=== PATIENT | female | born 1960 | race Caucasian/White ===

== ENCOUNTER 2017-03-11 11:31 | Emergency (ER) | payer SELFPAY ==
[~2017-03-11] VITALS: Ht 172.7 cm; Wt 48.5 kg
[~2017-03-11 11:31] MED LIST: ALEVE220 M1 PO; AMOXICILLIN500 MG PO; BUSPIRONE HCL10 MG PO; CELEXA40 MG PO; FLUTICASONE PRO16 GM NS; HYDROCODON-ACE1 EA14 PO; IBUPROFEN600 MG PO; IBUPROFEN800 MG PO; LEVOTHYROXINE125 MCG PO; LYRICA75 MG PO; MELOXICAM15 MG PO; NAPROXEN500 MG PO; NORCO 5-325 TA1 EACH PO; PSEUDOEPHEDRINE60 MG PO; REGLAN10 MG PO; ROBAXIN-750750 MG PO; TRAMADOL HCL50 MG PO; VALIUM5 MG PO
[2017-03-11] MEDS ORDERED: FOLIC ACID0.4 MG PO (11:54)
[2017-03-11] MEDS ORDERED: VITAMIN B122500 MC1 PO (11:54)
== END 2017-03-11 15:12 | disposition home or self-care (01) ==
LOC: ED 11:31
DX: R63.4 Abnormal weight loss (principal); R19.7 Diarrhea, unspecified; E03.9 Hypothyroidism, unspecified; J44.9 Chronic obstructive pulmonary disease, unspecified; Z87.891 Personal history of nicotine dependence; Z90.710 Acquired absence of both cervix and uterus; Z90.49 Acquired absence of other specified parts of digestive tract; Z95.0 Presence of cardiac pacemaker; Z88.1 Allergy status to other antibiotic agents; Z88.5 Allergy status to narcotic agent; Z79.899 Other long term (current) drug therapy
CPT/HCPCS: 71020; 80053; 81001; 84439; 84443; 85025; 96360; 99283; J7030

== ENCOUNTER 2017-05-15 16:09 | Emergency (ER) | payer SELFPAY ==
[~2017-05-15] VITALS: Ht 172.7 cm; Wt 48.5 kg
[~2017-05-15 16:09] MED LIST changes: +FOLIC ACID0.4 MG PO; +VITAMIN B122500 MC1 PO
== END 2017-05-15 17:46 | disposition home or self-care (01) ==
LOC: ED 16:09
PROC: 0HQFXZZ Repair Right Hand Skin, External Approach (ICD-10-PCS; principal; 2017-05-15)
DX: S61.411A Laceration without foreign body of right hand, initial encounter (principal); E03.9 Hypothyroidism, unspecified; J44.9 Chronic obstructive pulmonary disease, unspecified; F17.200 Nicotine dependence, unspecified, uncomplicated; Z90.49 Acquired absence of other specified parts of digestive tract; Z90.710 Acquired absence of both cervix and uterus; Z95.0 Presence of cardiac pacemaker; Z98.890 Other specified postprocedural states; Z88.8 Allergy status to other drugs, medicaments and biological substances; Z88.1 Allergy status to other antibiotic agents; Z88.5 Allergy status to narcotic agent; W22.8XXA Striking against or struck by other objects, initial encounter
CPT/HCPCS: 12001; 99282

== ENCOUNTER 2017-10-05 17:24 | Emergency (ER) | payer SELFPAY ==
[~2017-10-05] VITALS: Ht 172.7 cm; Wt 46.7 kg
--- OUTSIDE RECORDS SUMMARY | ~2017-10-05 | XMS | Encounter Summary ---
Demographics + + + | Address | [address] | | | [place] [address] | + + + | Home Phone | | + + + | Preferred Language | Unknown | + + + | Marital Status | | + + + | Voodoo Affiliation | 1009 | + + + | Race | Unknown | + + + | Ethnic Group | Unknown | + + + Author + + + | Author | [facility] | + + + | Organization | [facility] | + + + | Address | Unknown | + + + | Phone | Unavailable | + + + Support + + + + + | Name | Relationship | Address | Phone | + + + + + | Brent Marin | ECON | [place] | | | | | [address] | | + + + + + Care Team Providers + +------+ + | Care Customer Support Associate Name | Role | Phone | + +------+ + | Mariangel Mcnulty NP | PCP | | + +------+ + Reason for Visit + + + | Reason | Comments | + + + | Pacemaker Check | in office | + + + Encounter Details +--------+ + + + + | Date | Type | Department | Care Team | Description | +--------+ + + + + | 08/21/ | Documentati | [facility] | | Pacemaker Check (in | | 2018 | on Only | [facility] [place] | | office) | | | | [address] | | | | | | [address] | | | | | | [place] [address] | | | | | | [phone] | | | +--------+ + + + [...] + as of this encounter Progress Notes Louis Benjamin - 08/21/2017 11:30 AM PDTIN OFFICE DEVICE INTERROGATION: Longevity/voltage: 8y 6mo Anticoagulation: Aspirin: 81mg Lead Impedance: WNL Thresholds: WNL Ap:64% Rvp: 0% Events: AT/AF 0%. 846 MANUFACTURER ( over 182 days) most recent 08/21/17 (several same day) longest 1 min 14sec SVT/Atrial Tach MVR 136 bpm. longest 08/06/17 6min 30sec MVR 130bpm 1:1 retrograde SVT EGMs printed. patient notices more dizziness when she first wakes up, but seems to go aw ay thought out the day- meds taken in the AM. Retrograde test V>A @ 176ms PVARP already @ 30 0ms. PMT protection ON @ 350ms. Plan: Remotes, Yearly in office Last in office with e business consultant: 07/04/17 senior pharmacy technician: Juliana Corona this encounter Plan of Treatment +--------+ + + + + | Date | Type | Specialty | Care Team | Description | +--------+ + + + + | 11/29/ | Documentati | Cardiology | | | | 2018 | on Only | | | | +--------+ + + + + | 12/26/ | Office | Cardiology | Suzanne Lazaro, | | | 2018 | Visit | | MD Simón Stover | | | | | | Dr [address], | | | | | | [place] [address] | | | | | | [phone] | | | | | | | | +--------+ + + + + | 02/28/ | Documentati | Cardiology | | | | 2017 | on Only | | | | +--------+ + + + + | 05/30/ | Documentati | Cardiology | | | | 2017 | on Only | | | | +--------+ + + + + as of this encounter Visit Diagnoses + + | Diagnosis | + + | Sick sinus syndrome (HCC) - Primary | + + | Sinoatrial node dysfunction | + +
--- OUTSIDE RECORDS SUMMARY | ~2017-10-05 | XMS | Encounter Summary ---
Demographics + + + | Address | [address] | | | [place] [address] | + + + | Home Phone | | + + + | Preferred Language | Unknown | + + + | Marital Status | | + + + | Druze Affiliation | 1009 | + + + | Race | Unknown | + + + | Ethnic Group | Unknown | + + + Author + + + | Author | [facility] | + + + | Organization | [facility] | + + + | Address | Unknown | + + + | Phone | Unavailable | + + + Support + + + + + | Name | Relationship | Address | Phone | + + + + + | Brent Marin | ECON | [place] | | | | | [address] | | + + + + + Care Team Providers + +------+ + | Care Camp Dishwasher Name | Role | Phone | + [...] + | 08/21/ | Documentati | [facility] [place] | | Pacemaker Check (in | | 2018 | on Only | [facility]iology [place] | | office) | | | | [address] | | | | | | [address] | | | | | | [place] [address] | | | | | | [phone] | | | +--------+ + + + [...] Ap:64% Rvp: 0% Events: AT/AF 0%. 846 CARD PUNCHER ( over 182 days) most recent 08/21/17 [...] Yearly in office Last in office with software release manager: 07/04/17 linux server engineer: Juliana Corona this encounter Plan of Treatment [...] | | | | | | [place] [address] | | | | | | [phone] | | | | | | | [...]
--- OUTSIDE RECORDS SUMMARY | ~2017-10-05 | XMS | Clinical Summary ---
Demographics + + + | Address | [address] | | | [place] [address] | + + + | Home Phone | | + + + | Preferred Language | Unknown | + + + | Marital Status | | + + + | Latter Day Affiliation | 1009 | + + + | Race | Unknown | + + + | Ethnic Group | Unknown | + + + Author + + + | Author | [facility] | + + + | Organization | [facility] | + + + | Address | Unknown | + + + | Phone | Unavailable | + + + Support + + + + + | Name | Relationship | Address | Phone | + + + + + | Brent Marin | ECON | [place] | | | | | [address] | | + + + + + Care Team Providers + +------+ + | Care Track Announcer Name | Role | Phone | + +------+ + | Mariangel Mcnulty SALES MANAGEMENT INTERN | PP | | + +------+ + [...] | | | | Activ | | 73040 UNITS TABS | 14 (fourteen) days. | [...] Pacemaker. | | Model-S/N: Damien THORNTON (SN [id number] | + + + + + | [...] months. Hx ICD/Pacemaker: implanted 02/15/2015, | | [employer]ovis DR-T/PRO MRI, SN: [id number].Last interrogation, | | 05/24/2016: battery status OK, [...] with | | adhesions/lysis, small bowel resection. [place] 10-year risk | | 1%, low risk.Lab, [...] | +--------+ + + + + | 09/21/ | Telephone | | Luis Hopson | Advice Only | | 2017 | | | | (Biotronic Alert) | +--------+ + + + + | 08/21/ | Documentati | | | Pacemaker Check (in | 2017 | on Only | | | office) | +--------+ + + + + | 07/30/ | Telephone | | Louis Benjamin | | | 2017 | | | | | +--------+ + + + + | 07/12/ | Documentati | | Constanza Portillo | Other ([facility] | | 2017 | on Only | | [place] | Records) | +--------+ + + + + from [...] + + + | Blood Pressure | 92/56 | 07/04/2017 4:21 PM PST | + + + + | Pulse | 59 | 07/04/2017 4:21 PM PST | + + + + | Temperature | 36.6 C (97.8 F) | 02/17/2015 9:51 AM PDT | + + + + | Respiratory Rate | 15 | 05/24/2016 2:13 PM PST | + + + + | Oxygen Saturation | 97% | 07/04/2017 4:21 PM PST | + + + + | Inhaled Oxygen | - | - | | Concentration | | | + + + + | Weight | 47.7 kg (105 lb 3.2 | 07/04/2017 4:21 PM PST | | | oz) | | + + + + | Height | 172.7 cm (5' 8") | 07/04/2017 4:21 PM PST | + + + + | Body Mass Index | 16 | 07/04/2017 4:21 PM PST | + + + + Plan of Treatment +--------+ + + + + | Date | Type | Specialty | Care Team | Description | +--------+ + + + + | 11/29/ | Documentati | | | | | 2017 | on Only | | | | +--------+ + + + + | 12/26/ | Office | | Suzanne Lazaro, | | | 2017 | Visit | | MD Simón Stover | | | | | | Dr [address], | | | | | | [place] [address] | | | | | | [phone] | | | | | | | | +--------+ + + + + | 02/28/ | Documentati | | | | | 2017 | on Only | | | | +--------+ + + + + | 05/30/ | Documentati | | | | | 2017 | on Only | | | | +--------+ + + + + + + + + + | Health Maintenance | Due Date | Last Done | Comments | + + + + + | Vaccine: | | | | | Dtap/Tdap/Td (1 - | 8 | | | | Tdap) | | | | + + + + + | Cervical Cancer | | | | | Screening (Pap) | 0 | | | + + + + [...] | | | | (Season Ended) | 8 | | | + + + + [...] | N/A: | | | 10/08/ | [id number] | | 53Implanted: Qty: 1 on | | Chest | | | 2016 | | | 02/04/2015 by Sebas | | | | | | /[id number] | | MD Queta | | | | | | 880 / | + +------+-------+ +--------+--------+--------+ | Atrial Lead Setrox S | | N/A: | | | 10/08/ | | | 53Implanted: Qty: 1 on | | Chest | | | 2016 | /[id number] | | 02/04/2015 by Sebas, | | | | | | 6630 / | | MD Queta | | | | | | | + +------+-------+ +--------+--------+--------+ | Pacemaker Entovis Dr-T | | N/A: | | | 04/10/ | [id number] | | PromriImplanted: Qty: 1 on | | Chest | | | 2014 | | | 02/04/2015 by Sebas, | | | | | | /[id number] | | MD Queta | | | | | | 752 / | + +------+-------+ +--------+--------+--------+ Results Not on filefrom Last 3 Months
--- OUTSIDE RECORDS SUMMARY | ~2017-10-05 | XMS | Encounter Summary ---
Demographics + + + | Address | [address] | | | [place] [address] | + + + | Home Phone | | + + + | Preferred Language | Unknown | + + + | Marital Status | | + + + | Zoroastrian Affiliation | 1009 | + + + | Race | Unknown | + + + | Ethnic Group | Unknown | + + + Author + + + | Author | [facility] | + + + | Organization | [facility] | + + + | Address | Unknown | + + + | Phone | Unavailable | + + + Support + + + + + | Name | Relationship | Address | Phone | + + + + + | Brent Marin | ECON | [place] | | | | | [address] | | + + + + + Care Team Providers + +------+ + | Care Senior Shipping Clerk Name | Role | Phone | + [...] | on Only | Cardiology Catherine Cordoba, RETAIL MARKETING EXECUTIVE | Records) | | | | [address] | | | | | | [place] | | | | | | [address] | | | | | | [phone] | | | +--------+ + + + [...] | | | | | | [place] [address] | | | | | | [phone] | | | | | | | [...]
--- OUTSIDE RECORDS SUMMARY | ~2017-10-05 | XMS | Encounter Summary ---
Demographics + + + | Address | [address] | | | [place] [address] | + + + | Home Phone | | + + + | Preferred Language | Unknown | + + + | Marital Status | | + + + | Pentecostalism Affiliation | 1009 | + + + | Race | Unknown | + + + | Ethnic Group | Unknown | + + + Author + + + | Author | [facility] | + + + | Organization | [facility] | + + + | Address | Unknown | + + + | Phone | Unavailable | + + + Support + + + + + | Name | Relationship | Address | Phone | + + + + + | Brent Marin | ECON | [place] | | | | | [address] | | + + + + + Care Team Providers + +------+ + | Care Settlement Processor Name | Role | Phone | + +------+ + | Mariangel Mcnulty NP | PCP | | + +------+ + Encounter Details +--------+ + + + + | Date | Type | Department | Care Team | Description | +--------+ + + + + | 07/30/ | Telephone | [facility] | Louis Benjamin | | | 2017 | | Cardiology [facility] | | | | | | [address] | | | | | | [place] | | | | | | [address] | | | | | | [phone] | | | +--------+ + + + [...] | | | | | | [place] [address] | | | | | | [phone] | | | | | | | [...]
--- OUTSIDE RECORDS SUMMARY | ~2017-10-05 | XMS | Encounter Summary ---
Demographics + + + | Address | [address] | | | [place] [address] | + + + | Home Phone | | + + + | Preferred Language | Unknown | + + + | Marital Status | | + + + | Denominational Affiliation | 1009 | + + + | Race | Unknown | + + + | Ethnic Group | Unknown | + + + Author + + + | Author | [facility] | + + + | Organization | [facility] | + + + | Address | Unknown | + + + | Phone | Unavailable | + + + Support + + + + + | Name | Relationship | Address | Phone | + + + + + | Brent Marin | ECON | [place] | | | | | [address] | | + + + + + Care Team Providers + +------+ + | Care Lumber Salvager Name | Role | Phone | + [...] | on Only | Cardiology Catherine Cordoba, ACCOUNT RETENTION REPRESENTATIVE | Records) | | | | [address] | | | | | | [place] | | | | | | [address] | | | | | | [phone] | | | +--------+ + + + [...] | | | | | | [place] [address] | | | | | | [phone] | | | | | | | [...]
--- OUTSIDE RECORDS SUMMARY | ~2017-10-05 | XMS | Encounter Summary ---
Demographics + + + | Address | [address] | | | [place] [address] | + + + | Home Phone | | + + + | Preferred Language | Unknown | + + + | Marital Status | | + + + | Oriental Orthodox Affiliation | 1009 | + + + | Race | Unknown | + + + | Ethnic Group | Unknown | + + + Author + + + | Author | [facility] | + + + | Organization | [facility] | + + + | Address | Unknown | + + + | Phone | Unavailable | + + + Support + + + + + | Name | Relationship | Address | Phone | + + + + + | Brent Marin | ECON | [place] | | | | | [address] | | + + + + + Care Team Providers + +------+ + | Care Senior Business Broker Name | Role | Phone | + [...] Only | | 2018 | | Cardiology [place] | | (Biotronic Alert) | | | | [address] | | | | | | [place], [place] | | | | | | [address] | | | | | | [phone] | | | +--------+ + + + [...] | | | | | | [place] [address] | | | | | | [phone] | | | | | | | [...]
--- OUTSIDE RECORDS SUMMARY | ~2017-10-05 | XMS | Clinical Summary ---
Demographics + + + | Address | [address] | | | [place] [address] | + + + | Home Phone | | + + + | Preferred Language | Unknown | + + + | Marital Status | | + + + | Gnosticism Affiliation | 1009 | + + + | Race | Unknown | + + + | Ethnic Group | Unknown | + + + Author + + + | Author | [facility] | + + + | Organization | [facility] | + + + | Address | Unknown | + + + | Phone | Unavailable | + + + Support + + + + + | Name | Relationship | Address | Phone | + + + + + | Brent Marin | ECON | [place] | | | | | [address] | | + + + + + Care Team Providers + +------+ + | Care Overhead Line Worker Name | Role | Phone | + +------+ + | Mariangel Mcnulty TELEPHONE SALES AGENT | PP | | + +------+ + [...] | | | | Activ | | 77788 UNITS TABS | 14 (fourteen) days. | [...] Pacemaker. | | Model-S/N: Damien THORNTON (SN [id number] | + + + + + | [...] months. Hx ICD/Pacemaker: implanted 02/15/2015, | | [employer] DR-T/PRO MRI, SN: [id number].Last interrogation, | | 05/24/2016: battery status OK, [...] with | | adhesions/lysis, small bowel resection. [place] 10-year risk | | 1%, low risk.Lab, [...] | | | | | | [place] [address] | | | | | | [phone] | | | | | | | [...] | N/A: | | | 10/08/ | [id number] | | 53Implanted: Qty: 1 on | | Chest | | | 2016 | | | 02/04/2015 by Sebas | | | | | | /[id number] | | MD Queta | | | | | | 880 / | + +------+-------+ +--------+--------+--------+ | Atrial Lead Setrox S | | N/A: | | | 10/08/ | | | 53Implanted: Qty: 1 on | | Chest | | | 2016 | /[id number] | | 02/04/2015 by Sebas, | | | | | | 6630 / | | MD Queta | | | | | | | + +------+-------+ +--------+--------+--------+ | Pacemaker Entovis Dr-T | | N/A: | | | 04/10/ | [id number] | | PromriImplanted: Qty: 1 on | | Chest | | | 2014 | | | 02/04/2015 by Sebas, | | | | | | /[id number] | | MD Queta | | | | | | 752 / | + +------+-------+ +--------+--------+--------+ Results Not on filefrom Last 3 Months
--- OUTSIDE RECORDS SUMMARY | ~2017-10-05 | XMS | Encounter Summary ---
Demographics + + + | Address | [address] | | | [place] [address] | + + + | Home Phone [...] + + + | Author | [facility] | + + + | Organization | [facility] | + + + | Address | Unknown | + + + | Phone | Unavailable | + + + Support + + + + + | Name | Relationship | Address | Phone | + + + + + | Brent Marin | ECON | [place] | | | | | [address] | | + + + + + Care Team Providers + +------+ + | Care Health Record Technician Name | Role | Phone | [...] [place] | | | | | | [address] | | | | | | [phone] | | | +--------+ + + + [...] | | | | | | [place] [address] | | | | | | [phone] | | | | | | | [...]
--- OUTSIDE RECORDS SUMMARY | ~2017-10-05 | XMS | Encounter Summary ---
Demographics + + + | Address | [address] | | | [place] [address] | + + + | Home Phone | | + + + | Preferred Language | Unknown | + + + | Marital Status | | + + + | Religion Affiliation | 1009 | + + + | Race | Unknown | + + + | Ethnic Group | Unknown | + + + Author + + + | Author | [facility] | + + + | Organization | [facility] | + + + | Address | Unknown | + + + | Phone | Unavailable | + + + Support + + + + + | Name | Relationship | Address | Phone | + + + + + | Brent Marin | ECON | [place] | | | | | [address] | | + + + + + Care Team Providers + +------+ + | Care Card Grader Name | Role | Phone | + [...] Only | | 2018 | | Cardiology [place] | | (Biotronic Alert) | | | | [address] | | | | | | [place], [place] | | | | | | [address] | | | | | | [phone] | | | +--------+ + + + [...] | | | | | | [place] [address] | | | | | | [phone] | | | | | | | [...]
== END 2017-10-05 17:47 | disposition left against medical advice (07) ==
LOC: ED 17:24
DX: Z53.21 Procedure and treatment not carried out due to patient leaving prior to being seen by health care provider (principal)

== ENCOUNTER 2017-10-06 08:27 | Emergency (ER) | payer SELFPAY ==
[~2017-10-06] VITALS: Ht 172.7 cm; Wt 46.7 kg
--- OUTSIDE RECORDS SUMMARY | ~2017-10-06 | XMS | Encounter Summary ---
Demographics + + + | Address | [address] | | | [place] [address] | + + + | Home Phone | | + + + | Preferred Language | Unknown | + + + | Marital Status | | + + + | Yazidi Affiliation | 1009 | + + + | Race | Unknown | + + + | Ethnic Group | Unknown | + + + Author + + + | Author | [facility] | + + + | Organization | [facility] | + + + | Address | Unknown | + + + | Phone | Unavailable | + + + Support + + + + + | Name | Relationship | Address | Phone | + + + + + | Brent Marin | ECON | [place] | | | | | [address] | | + + + + + Care Team Providers + +------+ + | Care Cardiac Cath Rn Name | Role | Phone | + +------+ + | Mariangel Mcnulty NP | PCP | | + +------+ + Reason for Visit + + + | Reason | Comments | + + + | Advice Only | Biotronic Alert | + + + Encounter Details +--------+ + + + + | Date | Type | Department | Care Team | Description | +--------+ + + + + | 09/21/ | Telephone | [facility] | Luis Hopson | Advice Only | | 2018 | | Cardiology [place] | | (Biotronic Alert) | | | | [address] | | | | | | [place], [place] | | | | | | [address] | | | | | | [phone] | | | +--------+ + + + [...] as of this encounter Plan of Treatment +--------+ + [...] | | | | | | [place] [address] | | | | | | [phone] | | | | | | | [...]
--- OUTSIDE RECORDS SUMMARY | ~2017-10-06 | XMS | Encounter Summary ---
Demographics + + + | Address | [address] | | | [place] [address] | + + + | Home Phone | | + + + | Preferred Language | Unknown | + + + | Marital Status | | + + + | Mormonism Affiliation | 1009 | + + + | Race | Unknown | + + + | Ethnic Group | Unknown | + + + Author + + + | Author | [facility] | + + + | Organization | [facility] | + + + | Address | Unknown | + + + | Phone | Unavailable | + + + Support + + + + + | Name | Relationship | Address | Phone | + + + + + | Brent Marin | ECON | [place] | | | | | [address] | | + + + + + Care Team Providers + +------+ + | Care Leather Scrubber Name | Role | Phone | + +------+ + | Mariangel Mcnulty NP | PCP | | + +------+ + Reason for Visit +--------+ + | Reason | Comments | +--------+ + | Other | [facility] | +--------+ + Encounter Details +--------+ + + + + | Date | Type | Department | Care Team | Description | +--------+ + + + + | 07/12/ | Documentati | [facility] | Constanza Portillo | Other ([facility] | | 2018 | on Only | Cardiology Catherine Cordoba, MARITIME GUARD | Records) | | | | [address] | | | | | | [place] | | | | | | [address] | | | | | | [phone] | | | +--------+ + + + [...] Cardiology | Suzanne Lazaro, | | | 2017 | Visit | | MD Simón Stover | | | | | | Dr [address], | | | | | | [place] [address] | | | | | | [phone] | | | | | | | [...]
--- OUTSIDE RECORDS SUMMARY | ~2017-10-06 | XMS | Clinical Summary ---
Demographics + + + | Address | [address] | | | [place] [address] | + + + | Home Phone | | + + + | Preferred Language | Unknown | + + + | Marital Status | | + + + | Holiness Affiliation | 1009 | + + + | Race | Unknown | + + + | Ethnic Group | Unknown | + + + Author + + + | Author | [facility] | + + + | Organization | [facility] | + + + | Address | Unknown | + + + | Phone | Unavailable | + + + Support + + + + + | Name | Relationship | Address | Phone | + + + + + | Brent Marin | ECON | [place] | | | | | [address] | | + + + + + Care Team Providers + +------+ + | Care Lawyer Real Estate Name | Role | Phone | + +------+ + | Mariangel Mcnulty LACE FINISHER | PP | | + +------+ + [...] | | | | Activ | | 95968 UNITS TABS | 14 (fourteen) days. | [...] Pacemaker. | | Model-S/N: Damien THORNTON (SN [id number] | + + + + + | [...] months. Hx ICD/Pacemaker: implanted 02/15/2015, | | [employer] DR-T/PRO MRI, SN: [id number].Last interrogation, | | 05/24/2016: battery status OK, [...] with | | adhesions/lysis, small bowel resection. [place] 10-year risk | | 1%, low risk.Lab, [...] | | | | | | [place] [address] | | | | | | [phone] | | | | | | | [...] | N/A: | | | 10/08/ | [id number] | | 53Implanted: Qty: 1 on | | Chest | | | 2016 | | | 02/04/2015 by Sebas | | | | | | /[id number] | | MD Queta | | | | | | 880 / | + +------+-------+ +--------+--------+--------+ | Atrial Lead Setrox S | | N/A: | | | 10/08/ | | | 53Implanted: Qty: 1 on | | Chest | | | 2016 | /[id number] | | 02/04/2015 by Sebas, | | | | | | 6630 / | | MD Queta | | | | | | | + +------+-------+ +--------+--------+--------+ | Pacemaker Entovis Dr-T | | N/A: | | | 04/10/ | [id number] | | PromriImplanted: Qty: 1 on | | Chest | | | 2014 | | | 02/04/2015 by Sebas, | | | | | | /[id number] | | MD Queta | | | | | | 752 / | + +------+-------+ +--------+--------+--------+ Results Not on filefrom Last 3 Months
--- OUTSIDE RECORDS SUMMARY | ~2017-10-06 | XMS | Encounter Summary ---
Demographics + + + | Address | [address] | | | [place] [address] | + + + | Home Phone | | + + + | Preferred Language | Unknown | + + + | Marital Status | | + + + | Mu-Ism Affiliation | 1009 | + + + | Race | Unknown | + + + | Ethnic Group | Unknown | + + + Author + + + | Author | [facility] | + + + | Organization | [facility] | + + + | Address | Unknown | + + + | Phone | Unavailable | + + + Support + + + + + | Name | Relationship | Address | Phone | + + + + + | Brent Marin | ECON | [place] | | | | | [address] | | + + + + + Care Team Providers + +------+ + | Care Gas Leak Inspector Helper Name | Role | Phone | + [...] Only | | 2018 | | [facility] [place] | | (Biotronic Alert) | | | | [address] | | | | | | [place], [place] | | | | | | [address] | | | | | | [phone] | | | +--------+ + + + [...] | | | | | | [place] [address] | | | | | | [phone] | | | | | | | [...]
--- OUTSIDE RECORDS SUMMARY | ~2017-10-06 | XMS | Encounter Summary ---
Demographics + + + | Address | [address] | | | [place] [address] | + + + | Home Phone | | + + + | Preferred Language | Unknown | + + + | Marital Status | | + + + | Mu-Ism Affiliation | 1009 | + + + | Race | Unknown | + + + | Ethnic Group | Unknown | + + + Author + + + | Author | [facility] | + + + | Organization | [facility] | + + + | Address | Unknown | + + + | Phone | Unavailable | + + + Support + + + + + | Name | Relationship | Address | Phone | + + + + + | Brent Marin | ECON | [place] | | | | | [address] | | + + + + + Care Team Providers + +------+ + | Care Juvenile Court Liaison Name | Role | Phone | + [...] [place] | | | | | | [address] | | | | | | [phone] | | | +--------+ + + + [...] | | | | | | [place] [address] | | | | | | [phone] | | | | | | | [...]
--- OUTSIDE RECORDS SUMMARY | ~2017-10-06 | XMS | Encounter Summary ---
Demographics + + + | Address | [address] | | | [place] [address] | + + + | Home Phone | | + + + | Preferred Language | Unknown | + + + | Marital Status | | + + + | Voodoo Affiliation | 1009 | + + + | Race | Unknown | + + + | Ethnic Group | Unknown | + + + Author + + + | Author | [facility] | + + + | Organization | [facility] | + + + | Address | Unknown | + + + | Phone | Unavailable | + + + Support + + + + + | Name | Relationship | Address | Phone | + + + + + | Brent Marin | ECON | [place] | | | | | [address] | | + + + + + Care Team Providers + +------+ + | Care Bilingual Office Assistant Name | Role | Phone | + [...] [place] | | | | | | [address] | | | | | | [phone] | | | +--------+ + + + [...] | | | | | | [place] [address] | | | | | | [phone] | | | | | | | [...]
--- OUTSIDE RECORDS SUMMARY | ~2017-10-06 | XMS | Encounter Summary ---
Demographics + + + | Address | [address] | | | [place] [address] | + + + | Home Phone | | + + + | Preferred Language | Unknown | + + + | Marital Status | | + + + | Worship Affiliation | 1009 | + + + | Race | Unknown | + + + | Ethnic Group | Unknown | + + + Author + + + | Author | [facility] [employer] [facility] | + + + | Organization | [facility] [employer] | + + + | Address | Unknown | + + + | Phone | Unavailable | + + + Support + + + + + | Name | Relationship | Address | Phone | + + + + + | Brent Marin | ECON | [place] | | | | | [address] | | + + + + + Care Team Providers + +------+ + | Care Elementary School Music Teacher Name | Role | Phone | + [...] + | 08/21/ | Documentati | [facility] [place] | | Pacemaker Check (in | | 2018 | on Only | [facility] [place] | | office) | | | | [address] | | | | | | [address] | | | | | | [place] [address] | | | | | | [phone] | | | +--------+ + + + [...] Ap:64% Rvp: 0% Events: AT/AF 0%. 846 CALL PERSON ( over 182 days) most recent 08/21/17 [...] Yearly in office Last in office with district service manager: 07/04/17 merit system director: Juliana Corona this encounter Plan of Treatment [...] | | | | | | [place] [address] | | | | | | [phone] | | | | | | | [...]
--- OUTSIDE RECORDS SUMMARY | ~2017-10-06 | XMS | Encounter Summary ---
Demographics + + + | Address | [address] | | | [place] [address] | + + + | Home Phone | | + + + | Preferred Language | Unknown | + + + | Marital Status | | + + + | Mandaen Affiliation | 1009 | + + + | Race | Unknown | + + + | Ethnic Group | Unknown | + + + Author + + + | Author | [facility] [employer] [facility] | + + + | Organization | [facility] [employer] [facility] | + + + | Address | Unknown | + + + | Phone | Unavailable | + + + Support + + + + + | Name | Relationship | Address | Phone | + + + + + | Brent Marin | ECON | [place] | | | | | [address] | | + + + + + Care Team Providers + +------+ + | Care Correctional Treatment Specialist Name | Role | Phone | [...] + | 08/21/ | Documentati | [facility] [place] | | Pacemaker Check (in | | 2018 | on Only | [facility] [place] | | office) | | | | [address] | | | | | | [address] | | | | | | [place] [address] | | | | | | [phone] | | | +--------+ + + + [...] Ap:64% Rvp: 0% Events: AT/AF 0%. 846 HAIRSPRING SETTER ( over 182 days) most recent 08/21/17 [...] Yearly in office Last in office with reconciling clerk: 07/04/17 hydrator: Juliana Corona this encounter Plan of Treatment [...] | | | | | | [place] [address] | | | | | | [phone] | | | | | | | [...]
--- OUTSIDE RECORDS SUMMARY | ~2017-10-06 | XMS | Clinical Summary ---
Demographics + + + | Address | [address] | | | [place] [address] | + + + | Home Phone | | + + + | Preferred Language | Unknown | + + + | Marital Status | | + + + | Synagogue Affiliation | 1009 | + + + | Race | Unknown | + + + | Ethnic Group | Unknown | + + + Author + + + | Author | [facility] | + + + | Organization | [facility] | + + + | Address | Unknown | + + + | Phone | Unavailable | + + + Support + + + + + | Name | Relationship | Address | Phone | + + + + + | Brent Marin | ECON | [place] | | | | | [address] | | + + + + + Care Team Providers + +------+ + | Care Terminal Clerk Name | Role | Phone | + +------+ + | Mariangel Mcnulty PERSONAL BANKING REPRESENTATIVE | PP | | + +------+ + [...] | | | | Activ | | 84227 UNITS TABS | 14 (fourteen) days. | [...] Pacemaker. | | Model-S/N: Damien THORNTON (SN [id number] | + + + + + | [...] months. Hx ICD/Pacemaker: implanted 02/15/2015, | | [employer] DR-T/PRO MRI, SN: [id number].Last interrogation, | | 05/24/2016: battery status OK, [...] with | | adhesions/lysis, small bowel resection. [place] 10-year risk | | 1%, low risk.Lab, [...] | | | | | | [place] [address] | | | | | | [phone] | | | | | | | [...] | N/A: | | | 10/08/ | [id number] | | 53Implanted: Qty: 1 on | | Chest | | | 2016 | | | 02/04/2015 by Sebas | | | | | | /[id number] | | MD Queta | | | | | | 880 / | + +------+-------+ +--------+--------+--------+ | Atrial Lead Setrox S | | N/A: | | | 10/08/ | | | 53Implanted: Qty: 1 on | | Chest | | | 2016 | /[id number] | | 02/04/2015 by Sebas, | | | | | | [id number] / | | MD Queta | | | | | | | + +------+-------+ +--------+--------+--------+ | Pacemaker Entovis Dr-T | | N/A: | | | 04/10/ | [id number] | | PromriImplanted: Qty: 1 on | | Chest | | | 2014 | | | 02/04/2015 by Sebas, | | | | | | /[id number] | | MD Queta | | | | | | 752 / | + +------+-------+ +--------+--------+--------+ Results Not on filefrom Last 3 Months
--- OUTSIDE RECORDS SUMMARY | ~2017-10-06 | XMS | Encounter Summary ---
Demographics + + + | Address | [address] | | | [place] [address] | + + + | Home Phone | | + + + | Preferred Language | Unknown | + + + | Marital Status | | + + + | Shinto Affiliation | 1009 | + + + | Race | Unknown | + + + | Ethnic Group | Unknown | + + + Author + + + | Author | [facility] [employer] [facility] | + + + | Organization | [facility] [employer] | + + + | Address | Unknown | + + + | Phone | Unavailable | + + + Support + + + + + | Name | Relationship | Address | Phone | + + + + + | Brent Marin | ECON | [place] | | | | | [address] | | + + + + + Care Team Providers + +------+ + | Care Entrance Guard Name | Role | Phone | + [...] | on Only | Cardiology Catherine Cord[place], AGRICULTURAL PILOT | Records) | | | | [address] | | | | | | [place] | | | | | | [address] | | | | | | [phone] | | | +--------+ + + + [...] | | | | | | [place] [address] | | | | | | [phone] | | | | | | | [...]
== END 2017-10-06 08:41 | disposition home or self-care (01) ==
LOC: ED 08:27
DX: S61.211A Laceration without foreign body of left index finger without damage to nail, initial encounter (principal); W45.8XXA Other foreign body or object entering through skin, initial encounter

== ENCOUNTER 2017-10-23 13:46 | Emergency (ER) | payer OTHER ==
[~2017-10-23] VITALS: Ht 172.7 cm; Wt 45.8 kg
[2017-10-23] MEDS ORDERED: ASPIRIN81 MG PO (14:06)
[2017-10-23] MEDS ORDERED: PROMETHAZINE HC25 M1 PO (15:17)
[2017-10-23] MEDS ORDERED: CYCLOBENZAPRINE10 MG PO (15:17)
== END 2017-10-23 15:25 | disposition home or self-care (01) ==
LOC: ED 13:46
DX: M54.32 Sciatica, left side (principal); M79.7 Fibromyalgia; E03.9 Hypothyroidism, unspecified; F17.200 Nicotine dependence, unspecified, uncomplicated; Z88.5 Allergy status to narcotic agent; Z88.8 Allergy status to other drugs, medicaments and biological substances; Z88.1 Allergy status to other antibiotic agents; Z79.899 Other long term (current) drug therapy; Z79.82 Long term (current) use of aspirin
CPT/HCPCS: 96372; 99283; J1885

== ENCOUNTER 2018-09-27 09:34 | Emergency (ER) | payer SELFPAY ==
[~2018-09-27] VITALS: Ht 172.7 cm; Wt 45.8 kg
--- OUTSIDE RECORDS SUMMARY | ~2018-09-27 | XMS | Clinical Summary ---
Demographics + + + | Address | [address] | | | [place] [address] | + + + | Home Phone | | + + + | Preferred Language | Unknown | + + + | Marital Status | | + + + | Mu-Ism Affiliation | 1009 | + + + | Race | Unknown | + + + | Ethnic Group | Unknown | + + + Author + + + | Author | [facility] [employer] [facility] | + + + | Organization | [facility] [employer] [facility] | + + + | Address | Unknown | + + + | Phone | Unavailable | + + + Support + + + + + | Name | Relationship | Address | Phone | + + + + + | Brent Marin | ECON | [place] | | | | | [address] | | + + + + + Care Team Providers + +------+ + | Care Non Destructive Evaluation Manager Name | Role | Phone | + +------+ + | Thi Crowder MD | PP | | + +------+ + Allergies + + + + + + | Active Allergy | Reactions | Severity | Noted | Comments | | | | | Date | | + + + + + + | Codeine | Other (See Comments) | Medium | 08/15/19 | " sleep for 3 | | | | | 12 | days" | + + + + + + | Hydrocortisone Base | Other (See Comments) | Medium | 08/15/19 | Chest pain | | | | | 12 | | + + + + + + | Digoxin And Related | Other (See | Medium | 06/22/19 | "Tired and | | | Comments), Cough | | 16 | sleeping all the | | | | | | time" | + + + + + + | Povidone Iodine | Itching | Medium | 08/15/19 | | | | | | 12 | | + + + + + + | Iodinated Diagnostic | Nausea and Vomiting | Low | 08/15/19 | And a headache | | Agents | | | 12 | | + + + + + + | Metoprolol | Visual Disturbance | Medium | 06/22/19 | | | | | | 16 | | + + + + + + | Gabapentin | Nausea Only | Low | 08/15/19 | | | | | | 12 | | + + + + + + | Oxycodone Hcl | Other (See Comments) | Medium | 08/15/19 | " can't remember" | | | | | 12 | | + + + + + + | Prednisone | Other (See Comments) | Medium | 08/15/19 | Chest pain | | | | | 12 | | + + + + + + | Tetracycline | Other (See Comments) | Medium | 08/15/19 | " makes me blind | | | | | 12 | for as long as I'm | | | | | | on it" | + + + + + + | Ketorolac | Other (See Comments) | Medium | 08/15/19 | " makes my | | | | | 12 | headaches worse" | + + + + + + Current Medications + + +-------+---------+------+------+-------+ | Prescription | Sig. | Disp. | Refills | Star | End | Statu | | | | | | t | Date | s | | | | | | Date | | | + + +-------+---------+------+------+-------+ | citalopram | Take 40 mg by mouth | | | | | Activ | | (CELEXA) 40 MG | daily. | | | | | e | | tablet | | | | | | | + + +-------+---------+------+------+-------+ | busPIRone (BUSPAR) | Take 10 mg by mouth | | | | | Activ | | 10 MG tablet | 2 (two) times daily. | | | | | e | | | Take one and a half | | | | | | | | tab twice a day | | | | | | + + +-------+---------+------+------+-------+ | fluticasone | 1 spray by Each Nare | | | | | Activ | | (FLONASE ALLERGY | route daily. | | | | | e | | RELIEF) 50 MCG/ACT | | | | | | | | nasal | | | | | | | + + +-------+---------+------+------+-------+ | Cholecalciferol | Take by mouth every | | | | | Activ | | 38127 UNITS TABS | 14 (fourteen) days. | | | | | e | + + +-------+---------+------+------+-------+ | Probiotic Product | Take by mouth | | | | | Activ | | (PROBIOTIC DAILY PO) | daily. | | | | | e | + + +-------+---------+------+------+-------+ | levothyroxine | Take 100 mcg by | | | | | Activ | | (SYNTHROID) 100 MCG | mouth daily as | | | | | e | | tablet | needed. | | | | | | + + +-------+---------+------+------+-------+ | folic acid | Take 1 mg by mouth | | | | | Activ | | (FOLVITE) 1 MG | daily. | | | | | e | | tablet | | | | | | | + + +-------+---------+------+------+-------+ | Cyanocobalamin | Take by mouth | | | | | Activ | | (VITAMIN B-12 CR PO) | daily. | | | | | e | + + +-------+---------+------+------+-------+ | magnesium oxide | Take 400 mg by mouth | | | | | Activ | | (MAG-OX) 400 MG | daily. | | | | | e | | tablet | | | | | | | + + +-------+---------+------+------+-------+ Active Problems + + + | Problem | Noted Date | + + + | Weight loss | 07/04/2017 | + + + | Chronic pain | 12/23/2015 | + + + + + | Last Assessment & Plan: History chronic back and neck pain, | | has a medical disability. | + + + + + | Cardiac pacemaker in situ | 09/10/2015 | + + + + + | Overview: Biotronik - Pacemaker. | | Model-S/N: Damien THORNTON (SN [id number] | + + + + + | Fatigue | 09/10/2015 | + + + | Chest pain | 01/29/2015 | + + + | Sick sinus syndrome (HCC) | 01/29/2015 | + + + + + | Last Assessment & Plan: SSS, pacemaker therapy. 56yo | | WF,has a history of sick sinus syndrome, symptomatic bradycardia | | with lightheadedness, no complete syncope. She was sent here by | | her PCP, VIDA Mcnulty , who she was seeing today, to have | | pacemaker checked. We checked it in office today and video | | conferenced with pacemaker rep Mychal Dao. She is complaining | | of Increased tenderness to site and feeling like heart beating | | our of her chest and felt like it shocked her once. Download | | shows bursts of atrial tachycardia. 64% atrial paced . 1% | | ventricular paced her atrial tachycardias run from 6 seconds to | | 28 seconds She denies lightheadedness or syncope. She is | | suffering from chronic neck pain as well. She remains very active | | There is no history of coronary disease, myocardial infarction, | | congestive heart failure, congenital heart disease, rheumatic | | heart disease. Her device appears to be stable, she is being | | followed in our device clinic and will be seen again in August.. | | I suggested that she take aspirin 81 mg and if she has further | | increases in atrial activity when seen in future, I will consider | | beta blockers and/or digoxin. She is tolerating her current | | medications and I ordered no other changes in therapy today. We | | will continue to follow her clinically and have asked her to come | | back in 6 months. Hx ICD/Pacemaker: implanted 02/15/2015, | | [email or web address] DR-T/PRO MRI, SN: [id number].Last interrogation, | | 05/24/2016: battery status OK, 9+ years, DDD-R (60/120), A-paced | | 64%, V-paced 1%, Mode Switch <0.1% (short burst of | | PAT,6-28sec).Last Cath: naLast Echo, 02/02/2015: LVEF 55-60%, | | trace AI, trace MR, trace TR.Last Stress Test, 03/01/2015: 7:34min | | Raphael, no chest pain, ECG (-) for ischemia, occ PVC. ECG, | | 05/24/2016: A-paced, 69bpm, 1st degree AVB, QRS NML. | + + + + + | Nonsustained supraventricular tachycardia (HCC) | 01/29/2015 | + + + | Palpitations | 01/29/2015 | + + + | Arthritis | | + + + | IBS (irritable bowel syndrome) | | + + + + + | Last Assessment & Plan: IBS, Hx abdominal surgery, with | | adhesions/lysis, small bowel resection. Forbes 10-year risk | | 1%, low risk.Lab, 08/30/2015: T Chol: 224, LDL-Chol: 130, | | HDL-Chol: 78, Tri Liver enzymes | | NML, Alb: 4.2, K: 4.5, BUN/Cr: 8/0.8, glu: 89 | | TSH: 0.888, free T4: 1.43, HgbA1c: 5.3, WBC: 4.3, H/H: | | 13.7/40.8, plt: 233 | + + + +---+ | Hypothyroid | | + +---+ Resolved Problems + + + + | Problem | Noted | Resolved | | | Date | Date | + + + + | Cardiac pacemaker in situ | 06/22/19 | | | | 16 | 8 | + + + + | Sinus pause | 01/30/20 | | | | 15 | 8 | + + + + | Atypical chest pain | 01/30/20 | | | | 15 | 8 | + + + + Encounters +--------+ + + + + | Date | Type | Specialty | Care Team | Description | +--------+ + + + + | 09/19/ | Documentati | | | Pacemaker (Remote ) | | 2018 | on Only | | | | +--------+ + + + + | 09/10/ | Orders Only | | Suzanne Lazaro, | Sick sinus syndrome | | 2018 | | | MD | ([facility]) (Primary Dx); | | | | | | Precordial pain; | | | | | | Cardiac pacemaker in | | | | | | situ | +--------+ + + + + | 08/19/ | Telephone | | Juan Lay | | | 2018 | | | | | +--------+ + + + + from Last 3 Months Family History + + +------+ + | Medical History | Relation | Name | Comments | + + +------+ + | COPD | Brother | | | + + +------+ + | Asthma | Father | | | + + +------+ + | COPD | Mother | | | + + +------+ + | Stroke | Mother | | | + + +------+ + + +------+ + + | Relation | Name | Status | Comments | + +------+ + + | Brother | | Alive | | + +------+ + + | Father | | | | + +------+ + + | Mother | | | | + +------+ + + Social History + + + [...] on file | | + + + Last Filed Vital Signs + + + + | Vital Sign | Reading | Time Taken | + + + + | Blood Pressure | 108/64 | 01/02/2018 9:05 AM PDT | + + + + | Pulse | 75 | 01/02/2018 9:05 AM PDT | + + + + | Temperature | 36.6 C (97.8 F) | 02/17/2015 9:51 AM PDT | + + + + | Respiratory Rate | 15 | 05/24/2016 2:13 PM PST | + + + + | Oxygen Saturation | 96% | 01/02/2018 9:05 AM PDT | + + + + | Inhaled Oxygen | - | - | | Concentration | | | + + + + | Weight | 46.4 kg (102 lb 4.8 | 01/02/2018 9:05 AM PDT | | | oz) | | + + + + | Height | 172.7 cm (5' 8") | 01/02/2018 9:05 AM PDT | + + + + | Body Mass Index | 15.55 | 01/02/2018 9:05 AM PDT | + + + + Plan of Treatment +--------+---------+ + + + | Date | Type | Specialty | Care Team | Description | +--------+---------+ + + + | 12/25/ | Office | | Suzanne Lazaro, | | | 2019 | Visit | | MD Simón [address]over | | | | | | [address] [place], | | | | | | [place] [address] | | | | | | [phone] | | | | | | | | +--------+---------+ + + + + + + + + | Health Maintenance | Due Date | Last Done | Comments | + + + + + | Vaccine: | | | | | Dtap/Tdap/Td (1 - | 8 | | | | Tdap) | | | | + + + + + | Cervical Cancer | | | | | Screening (Pap) | 9 | | | + + + + + | Breast Cancer | | | | | Screening | 9 | | | | (Mammogram) | | | | + + + + + | Colon Cancer | | | | | Screening | 9 | | | | (Colonoscopy) | | | | + + + + + | Vaccine: Zoster (1 | | | | | of 2) | 9 | | | + + + + + | Vaccine: Influenza | | | | | (Season Ended) | 9 | | | + + + + + Implants + +------+-------+ +--------+--------+--------+ | Implanted | Type | Area | Manufacture | Device | Expira | Model | | | | | r | | tion | / | | | | | | Identi | Date | Serial | | | | | | fier | | / Lot | + +------+-------+ +--------+--------+--------+ | Venous Lead Setrox S | | N/A: | | | 10/08/ | [id number] | | 53Implanted: Qty: 1 on | | Chest | | | 2016 | | | 02/04/2015 by Sebas, | | | | | | /[id number] | | MD Queta | | | | | | [id number] / | + +------+-------+ +--------+--------+--------+ | Atrial Lead Setrox S | | N/A: | | | 10/08/ | | | 53Implanted: Qty: 1 on | | Chest | | | 2016 | /[id number] | | 02/04/2015 by Sebas, | | | | | | [id number] / | | MD Queta | | | | | | | + +------+-------+ +--------+--------+--------+ | Pacemaker Entovis OsielT | | N/A: | | | 04/10/ | [id number] | | PromriImplanted: Qty: 1 on | | Chest | | | 2014 | | | 02/04/2015 by Sebas, | | | | | | /[id number] | | MD Queta | | | | | | 752 / | + +------+-------+ +--------+--------+--------+ Results Not on filefrom Last 3 Months
--- OUTSIDE RECORDS SUMMARY | ~2018-09-27 | XMS | Encounter Summary ---
Demographics + + + | Address | [address] | | | [place] [address] | + + + | Home Phone | | + + + | Preferred Language | Unknown | + + + | Marital Status | | + + + | Nondenominational Affiliation | 1009 | + + + | Race | Unknown | + + + | Ethnic Group | Unknown | + + + Author + + + | Author | [facility] [employer] | + + + | Organization | [facility] [employer] | + + + | Address | Unknown | + + + | Phone | Unavailable | + + + Support + + + + + | Name | Relationship | Address | Phone | + + + + + | Brent Marin | ECON | [place] | | | | | [address] | | + + + + + Care Team Providers + +------+ + | Care Glove Stitcher Name | Role | Phone | + +------+ + | Thi Crowder MD | PCP | | + +------+ + Encounter Details +--------+ + + + + | Date | Type | Department | Care Team | Description | +--------+ + + + + | 08/19/ | Telephone | [facility] | Juan [facility] | | | 2018 | | Cardiology [facility] | | | | | | [address] | | | | | | [place] | | | | | | [address] | | | | | | [phone] | | | +--------+ + + + [...] | 2019 | Visit | | MD [address] | | | | | | [address] [place], | | | | | | [place] [address] | | | | | | [phone] | | | | | | | | +--------+---------+ + + + as of this encounter Visit Diagnoses Not on filein this encounter
--- OUTSIDE RECORDS SUMMARY | ~2018-09-27 | XMS | Encounter Summary ---
Demographics + + + | Address | [address] | | | [place] [address] | + + + | Home Phone | | + + + | Preferred Language | Unknown | + + + | Marital Status | | + + + | Rastafari Affiliation | 1009 | + + + | Race | Unknown | + + + | Ethnic Group | Unknown | + + + Author + + + | Author | [facility] [employer] | + + + | Organization | [facility] [employer] | + + + | Address | Unknown | + + + | Phone | Unavailable | + + + Support + + + + + | Name | Relationship | Address | Phone | + + + + + | Brent Marin | ECON | [place] | | | | | [address] | | + + + + + Care Team Providers + +------+ + | Care Pickle Cutter Name | Role | Phone | + [...] + | 09/19/ | Documentati | [facility] [place] | | Pacemaker (Remote ) | | 2019 | on Only | Cardiology [facility] | | | | | | [address] | | | | | | [place] | | | | | | [address] | | | | | | [phone] | | | +--------+ + + + [...] this encounter Progress Notes Juan Lay - 09/19/2018 8:00 AM PDTFormatting of this note may be different from the nenita pritchett. PACEMAKER REMOTE INTERROGATION REPORT Name: Dianne Marin PCP: Thi Crowder : 1960 Primary cardiology provider: Suzanne Lazaro Primary electrophysiology provider: Stefano Device hand blocker: Biotronik Device type: Dual chamber Battery Longevity: ok [...] | | | | | | [place] [address] | | | | | | [phone] | | | | | | | [...]
--- OUTSIDE RECORDS SUMMARY | ~2018-09-27 | XMS | Encounter Summary ---
Demographics + + + | Address | [address] | | | [place] [address] | + + + | Home Phone | | + + + | Preferred Language | Unknown | + + + | Marital Status | | + + + | Orthodoxy Affiliation | 1009 | + + + | Race | Unknown | + + + | Ethnic Group | Unknown | + + + Author + + + | Author | [facility] | + + + | Organization | [facility] | + + + | Address | Unknown | + + + | Phone | Unavailable | + + + Support + + + + + | Name | Relationship | Address | Phone | + + + + + | Brent Marin | ECON | [place] | | | | | [address] | | + + + + + Care Team Providers + +------+ + | Care Product Accountant Name | Role | Phone | + [...] | Authorized | | | Diagnoses | Tejas, | [facility] | | | | | Sick sinus | MD Suzanne | HOSPITAL | | | | | syndrome | [address] | | | | | ([facility]) | Ck Renae | EDY WILHELM | | | | | Precordial | Chao F | [place] | | | | | pain | [place], [place] | [address] | | | | | Cardiac | [address] | Phone: | | | | | pacemaker in | Phone: | [phone] | | | | | situ | [phone] | Fax: | | | | | Procedures | Fax: | [phone] | | | | | [place] | [phone] | | | | | | Pharmaceutic [...] | 09/10/ | Orders Only | [facility]O [place] | Suzanne Lazaro, | Sick sinus syndrome | | 2019 | | Cardiology Radha | [address] | ([facility]) (Primary Dx); | | | | [address] | [address] [place], | Precordial pain; | | | | [place] | [place] [address] | Cardiac pacemaker in | | | | [address] | [phone] | situ | | | | [phone] | | | +--------+ + + + [...] | | 2019 | Visit | | [address] | | | | | | Dr [place], | | | | | | [place] [address] | | | | | | [phone] | | | | | | | [...]
--- OUTSIDE RECORDS SUMMARY | ~2018-09-27 | XMS | Encounter Summary ---
Demographics + + + | Address | [address] | | | [place] [address] | + + + | Home Phone | | + + + | Preferred Language | Unknown | + + + | Marital Status | | + + + | Jain Affiliation | 1009 | + + + | Race | Unknown | + + + | Ethnic Group | Unknown | + + + Author + + + | Author | [facility] | + + + | Organization | [facility] | + + + | Address | Unknown | + + + | Phone | Unavailable | + + + Support + + + + + | Name | Relationship | Address | Phone | + + + + + | Brent Marin | ECON | [place] | | | | | [address] | | + + + + + Care Team Providers + +------+ + | Care Pointing Machine Operator Name | Role | Phone | [...] + | 09/19/ | Documentati | M[facility]ELO [place] | | Pacemaker (Remote ) | | 2019 | on Only | Cardiology Catherine | | | | | | [address] | | | | | | [place] | | | | | | [address] | | | | | | [phone] | | | +--------+ + + + [...] Suzanne Lazaro Primary electrophysiology provider: Stefano 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
--- OUTSIDE RECORDS SUMMARY | ~2018-09-27 | XMS | Clinical Summary ---
Demographics + + + | Address | [address] | | | [place] [address] | + + + | Home Phone | | + + + | Preferred Language | Unknown | + + + | Marital Status | | + + + | Druze Affiliation | 1009 | + + + | Race | Unknown | + + + | Ethnic Group | Unknown | + + + Author + + + | Author | [email or web address] | + + + | Organization | [email or web address] | + + + | Address | Unknown | + + + | Phone | Unavailable | + + + Support + + + + + | Name | Relationship | Address | Phone | + + + + + | Brent Marin | ECON | [place] | | | | | [address] | | + + + + + Care Team Providers + +------+ + | Care Naval Aircrewman Helicopter Name | Role | Phone | + [...] | | | | Activ | | [address]909 UNITS TABS | 14 (fourteen) days. | [...] Pacemaker. | | Model-S/N: Damien THORNTON (SN [id number] | + + + + + | [...] months. Hx ICD/Pacemaker: implanted 02/15/2015, | | DRC Computer DR-T/PRO MRI, SN: [id number].Last interrogation, | | 05/24/2016: battery status OK, [...] with | | adhesions/lysis, small bowel resection. Morris 10-year risk | | 1%, low risk.Lab, [...] | 2018 | | | MD | ([facility]) (Primary Dx); | | | | [...] | | | | | | [place] [address] | | | | | | [phone] | | | | | | | [...] | N/A: | | | 10/08/ | [id number] | | 53Implanted: Qty: 1 on | | Chest | | | 2016 | | | 02/04/2015 by Sebas, | | | | | | /[id number] | | MD Queta | | | | | | 880 / | + +------+-------+ +--------+--------+--------+ | Atrial Lead Setrox S | | N/A: | | | 10/08/ | | | 53Implanted: Qty: 1 on | | Chest | | | 2016 | /[id number] | | 02/04/2015 by Sebas, | | | | | | 6630 / | | MD Queta | | | | | | | + +------+-------+ +--------+--------+--------+ | Pacemaker Entovis OsielT | | N/A: | | | 04/10/ | [id number] | | PromriImplanted: Qty: 1 on | | Chest | | | 2014 | | | 02/04/2015 by Sebas, | | | | | | /[id number] | | MD Queta | | | | | | 752 / | + +------+-------+ +--------+--------+--------+ Results Not on filefrom Last 3 Months
--- OUTSIDE RECORDS SUMMARY | ~2018-09-27 | XMS | Encounter Summary ---
Demographics + + + | Address | [address] | | | [place] [address] | + + + | Home Phone | | + + + | Preferred Language | Unknown | + + + | Marital Status | | + + + | Restoration Affiliation | 1009 | + + + | Race | Unknown | + + + | Ethnic Group | Unknown | + + + Author + + + | Author | [facility] | + + + | Organization | [facility] | + + + | Address | Unknown | + + + | Phone | Unavailable | + + + Support + + + + + | Name | Relationship | Address | Phone | + + + + + | Brent Marin | ECON | [place] | | | | | [address] | | + + + + + Care Team Providers + +------+ + | Care Film Flat Inspector Name | Role | Phone | + [...] [place] | | | | | | [address] | | | | | | [phone] | | | +--------+ + + + [...] [place], | | | | | | [place] [address] | | | | | | [phone] | | | | | | | | +--------+---------+ + + + as of this encounter Visit Diagnoses Not on filein this encounter
--- OUTSIDE RECORDS SUMMARY | ~2018-09-27 | XMS | Encounter Summary ---
Demographics + + + | Address | [address] | | | [place] [address] | + + + | Home Phone [...] + + | Author | [facility] | + + + | Organization | [facility] | + + + | Address | Unknown | + + + | Phone | Unavailable | + + + Support + + + + + | Name | Relationship | Address | Phone | + + + + + | Brent Marin | ECON | [place] | | | | | [address] | | + + + + + Care Team Providers + +------+ + | Care Electrical Accessories Ii Assembler Name | Role | Phone | + [...] | | | | | pain | [place], [place] | [address] | | | | | Cardiac | [address] | Phone: | | | | | pacemaker in | Phone: | [phone] | | | | | situ | [phone] | Fax: | | | | | Procedures | Fax: | [phone] | | | | | [place] | [phone] | | | | | | Pharmaceutic [...] | 09/10/ | Orders Only | M[facility] [place] | Suzanne Lazaro, | Sick sinus syndrome | | 2019 | | Cardiology [place]ha | [address] | ([facility]) (Primary Dx); | | | | [address] | [address] [place], | Precordial pain; | | | | [place] | [place] [address] | Cardiac pacemaker in | | | | [address] | [phone] | situ | | | | [phone] | | | +--------+ + + + [...] | | | | | | [place] [address] | | | | | | [phone] | | | | | | | [...]
[~2018-09-27 09:34] MED LIST changes: +ASPIRIN81 MG PO; +CYCLOBENZAPRINE10 MG PO; +PROMETHAZINE HC25 M1 PO; +VITAMIN C500 M5 PO; +VITAMIN D1000 UNIT PO
--- OUTSIDE RECORDS SUMMARY | 2018-09-27 09:38 | XMS ---
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 Details: LWBS CRITERIA MET - Group Notification - [facility] - Has Care Guidelines CARE PROVIDERS FEI JOSEPH Primary Care Current PHONE: [phone] Fawad has no Care Guidelines for this patient. Care History Medical/Surgical 01/08/2018 [facility] - Patient is currently established with [facility]. If patient is seen in the ED during business hours. Please contact CHWs at [facility]. Care Recommendation: This patient has had 5 or more Emergency Department visits in the last 12 months.\T\nbsp; Patient requires education on the scope and purpose of the ED as an acute care provider not a Primary Care Provider and should not be utilized for chronic conditions.\T\nbsp; These are guidelines and the provider should exercise clinical judgment when providing care. 10/29/2017 [facility] - Patient is currently established with [facility]. If patient is seen in the ED during business hours. Please contact CHWs at [facility] at Urn [phone]. Care Recommendation: This patient has had 5 or more Emergency Department visits in the last 12 months. Patient requires education on the scope and purpose of the ED as an acute care provider not a Primary Care Provider and should not be utilized for chronic conditions. If patient returns to ED please contact Community Health Worker Jolie at [phone]. These are guidelines and the provider should exercise clinical judgment when providing care. [place] VISIT COUNT (12 MO.) 5 [facility] Mancuso TOTAL 5 NOTE: Visits indicate total known visits. ED/UCC VISIT TRACKING (12 MO.) 09/27/2018 09:35 [facility] [place] TYPE: Emergency COMPLAINT: - PACEMAKER PROBLEM/SOB 01/07/2018 19:38 [facility] [place] TYPE: Emergency COMPLAINT: - DIFFICUTLY BREATHING DIAGNOSES: - Nicotine dependence, unspecified, uncomplicated - Activity, walking, marching and hiking - Other senior living (current) drug therapy - Hypothyroidism, unspecified - Pleurodynia - Contusion of abdominal wall, initial encounter - Allergy status to other drugs, medicaments and biological substances status - Other cause of strike by thrown, projected or falling object, initial encounter - Allergy status to narcotic agent status - terminal clerk (current) use of aspirin 10/23/2017 13:47 [facility] [place] TYPE: Emergency COMPLAINT: - BODY PAIN/NO INJURY DIAGNOSES: - Allergy status to narcotic agent status - Sciatica, left side - Hypothyroidism, unspecified - terminal clerk (current) use of aspirin - Allergy status to other drugs, medicaments and biological substances status - Sciatica, left side - Fibromyalgia - Allergy status to other antibiotic agents status - Other senior living (current) drug therapy - Nicotine dependence, unspecified, uncomplicated 10/06/2017 08:28 [facility] [place] TYPE: Emergency COMPLAINT: - L FINGER LACERATION DIAGNOSES: - Other foreign body or object entering through skin, initial encounter - Laceration without foreign body of left index finger without damage to nail, initial encounter 10/05/2017 17:24 [facility] [place] TYPE: Emergency COMPLAINT: - LT INDEX FINGER LAC DIAGNOSES: - Procedure and treatment not carried out due to patient leaving prior to being seen by health care provider INPATIENT VISIT TRACKING (12 MO.) No inpatient visits to display in this time frame [id number]
[2018-09-27] MEDS ORDERED: HYDROXYZINE HCL50 MG PO (09:46)
--- NOTE | 2018-09-27 13:42 | EKG ---
[facility] [address] [place], [place] [address] Signed Atrial-paced rhythm Abnormal ECG No previous ECGs available Confirmed by LAURA ESPINOZA DO ([id number]) on 09/27/2018 1:42:18 PM Electronically Signed By: LAURA ESPINOZA DO 09/27/18 1342 PATIENT NAME: QING CORBETT Electrocardiogram DATE OF : 58 PHYSICIAN: LAURA ESPINOZA DO REPORT #: [id number] REPORT IS CONFIDENTIAL AND NOT TO BE RELEASED WITHOUT AUTHORIZATION
== END 2018-09-27 11:28 | disposition home or self-care (01) ==
LOC: ED 09:34
DX: R07.89 Other chest pain (principal); J44.9 Chronic obstructive pulmonary disease, unspecified; E03.9 Hypothyroidism, unspecified; E78.5 Hyperlipidemia, unspecified; F17.200 Nicotine dependence, unspecified, uncomplicated; Z95.0 Presence of cardiac pacemaker; Z90.710 Acquired absence of both cervix and uterus; Z90.89 Acquired absence of other organs; Z88.6 Allergy status to analgesic agent; Z88.1 Allergy status to other antibiotic agents; Z88.8 Allergy status to other drugs, medicaments and biological substances; Z88.5 Allergy status to narcotic agent; Z79.82 Long term (current) use of aspirin; Z79.899 Other long term (current) drug therapy
CPT/HCPCS: 36415; 71046; 80053; 84484; 85025; 99284-25

== ENCOUNTER 2018-10-23 12:25 | Emergency (ER) | payer SELFPAY ==
[~2018-10-23] VITALS: Ht 172.7 cm; Wt 55.3 kg
--- OUTSIDE RECORDS SUMMARY | ~2018-10-23 | XMS | Encounter Summary ---
Demographics + + + | Address | [address] | | | [place] [address] | + + + | Home Phone | | + + + | Preferred Language | Unknown | + + + | Marital Status | | + + + | Mormonism Affiliation | 1009 | + + + | Race | Unknown | + + + | Ethnic Group | Unknown | + + + Author + + + | Author | [email or web address] | + + + | Organization | [facility] | + + + | Address | Unknown | + + + | Phone | Unavailable | + + + Support + + + + + | Name | Relationship | Address | Phone | + + + + + | Brent Marin | ECON | [place] | | | | | [address] | | + + + + + Care Team Providers + +------+ + | Care Lead Java Programmer Name | Role | Phone | + +------+ + | Thi Crowder MD | PCP | | + +------+ + Reason for Visit + + + | Reason | Comments | + + + | Pacemaker | Alert | + + + Encounter Details +--------+ + + + + | Date | Type | Department | Care Team | Description | +--------+ + + + + | 10/09/ | Documentati | M[facility]ELO [facility] | Juan Lay | Pacemaker (Alert ) | | 2019 | on Only | Cardiology [facility] | | | | | | [address] | | | | | | [place] | | | | | | [address] | | | | | | [phone] | | | +--------+ + + + + Social History + + + +--------+ + | Tobacco Use | Types | Packs/Day | Years | Date | | | | | Used | | + + + +--------+ + | Former Smoker | Cigarettes | 0.5 | 35 | Quit: 06/11/2010 | + + + +--------+ + + +---+---+---+ | Smokeless Tobacco: | | | | | Never Used | | | | + +---+---+---+ + + | Comments: quit 5 yrs ago - smokes one "occasionally " | + + + + +---------+ + | Alcohol Use | Drinks/We | oz/Week | Comments | | | ek | | | + + +---------+ + | No | 0 | 0.0 | quit in 2009 | | | Standard | | | | | drinks or | | | | | | | | | | equivalen | | | | | t | | | + + +---------+ + + + + | Sex Assigned at | Date Recorded | | | | + + + | Not on file | | + + + as of this encounter Progress Notes Juan Lay - 10/09/2018 7:47 AM PDTALERT REPORT Pt had alert for HVR lasting 12 seconds on 10/09/18 at 0200 Will continue to monitor in this encounter Plan of Treatment +--------+---------+ + + + | Date | Type | Specialty | Care Team | Description | +--------+---------+ + + + | 12/25/ | Office | Cardiology | Suzanne Lazaro, | | | 2018 | Visit | | MD Simón Stover | | | | | | Dr [place], | | | | | | [place] [address] | | | | | | [phone] | | | | | | | | +--------+---------+ + + + as of this encounter Visit Diagnoses Not on filein this encounter
--- OUTSIDE RECORDS SUMMARY | ~2018-10-23 | XMS | Encounter Summary ---
Demographics + + + | Address | [address] | | | [place] [address] | + + + | Home Phone | | + + + | Preferred Language | Unknown | + + + | Marital Status | | + + + | Denominational Affiliation | 1009 | + + + | Race | Unknown | + + + | Ethnic Group | Unknown | + + + Author + + + | Author | [facility] | + + + | Organization | [facility] | + + + | Address | Unknown | + + + | Phone | Unavailable | + + + Support + + + + + | Name | Relationship | Address | Phone | + + + + + | Brent Marin | ECON | [place] | | | | | [address] | | + + + + + Care Team Providers + +------+ + | Care Double Back Operator Name | Role | Phone | + +------+ + | Thi Crowder MD | PCP | | + +------+ + Encounter Details +--------+ + + + + | Date | Type | Department | Care Team | Description | +--------+ + + + + | 08/19/ | Telephone | [facility] | Juan Lay | | | 2018 | | Cardiology [place] | | | | | | [address] | | | | | | [place] | | | | | | [address] | | | | | | [phone] | | | +--------+ + + + [...] + + + as of this encounter Plan of Treatment +--------+---------+ + + + | Date | Type | Specialty | Care Team | Description | +--------+---------+ + + + | 12/25/ | Office | Cardiology | Suzanne Lazaro, | | | 2019 | Visit | | MD Simón Stover | | | | | | Dr [place], | | | | | | [place] [address] | | | | | | [phone] | | | | | | | | +--------+---------+ + + + as of this encounter Visit Diagnoses Not on filein this encounter
--- OUTSIDE RECORDS SUMMARY | ~2018-10-23 | XMS | Encounter Summary ---
Demographics + + + | Address | [address] | | | [place] [address] | + + + | Home Phone | | + + + | Preferred Language | Unknown | + + + | Marital Status | | + + + | Sikh Affiliation | 1009 | + + + | Race | Unknown | + + + | Ethnic Group | Unknown | + + + Author + + + | Author | [facility] | + + + | Organization | [facility] | + + + | Address | Unknown | + + + | Phone | Unavailable | + + + Support + + + + + | Name | Relationship | Address | Phone | + + + + + | Brent Marin | ECON | [place] | | | | | [address] | | + + + + + Care Team Providers + +------+ + | Care Freelance Interpreter/Translator Name | Role | Phone | + +------+ + | Thi Crowder MD | PCP | | + +------+ + Reason for Visit + + + | Reason | Comments | + + + | Pacemaker | Remote | + + + Encounter Details +--------+ + + + + | Date | Type | Department | Care Team | Description | +--------+ + + + + | 09/19/ | Documentati | [facility] | | Pacemaker (Remote ) | | 2019 | on Only | Cardiology [place] | | | | | | [address] | | | | | | [place] | | | | | | [address] | | | | | | [phone] | | | +--------+ + + + [...] + + as of this encounter Progress Juan Gannon - 09/19/2018 8:00 AM PDTFormatting of this note may be different from the o shreyas. 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 Ventricular high rate episodes: None. Lead function: Lead impedance and threshold value trends have been reviewed and are accepta ble based on most recent evaluation Follow up: The next scheduled interrogation will be in 3 months Follow up with . Additional comments: None. IMPRESSION: 1. Normal pacemaker function. 2. No atrial fibrillation/flutter noted. 3. No ventricular high rate episodes were noted. Testing reviewed by: Juan Lay in this encounter Plan of Treatment +--------+---------+ + + + | Date | Type | Specialty | Care Team | Description | +--------+---------+ + + + | 12/25/ | Office | Cardiology | Suzanne Lazaro, | | | 2019 | Visit | | MD Simón Stover | | | | | | Dr [place], | | | | | | [place] [address] | | | | | | [phone] | | | | | | | | +--------+---------+ + + + as of this encounter Visit Diagnoses + + | Diagnosis | + + | Palpitations - Primary | + + | Sick sinus syndrome (HCC) | + + | Sinoatrial node dysfunction | + + | Nonsustained supraventricular tachycardia (HCC) | + + | Other specified cardiac dysrhythmias | + +
--- OUTSIDE RECORDS SUMMARY | ~2018-10-23 | XMS | Encounter Summary ---
Demographics + + + | Address | [address] | | | [place] [address] | + + + | Home Phone | | + + + | Preferred Language | Unknown | + + + | Marital Status | | + + + | Samaritan Affiliation | 1009 | + + + | Race | Unknown | + + + | Ethnic Group | Unknown | + + + Author + + + | Author | [facility] | + + + | Organization | [facility] [employer] [facility] | + + + | Address | Unknown | + + + | Phone | Unavailable | + + + Support + + + + + | Name | Relationship | Address | Phone | + + + + + | Brent Marin | ECON | [place] | | | | | [address] | | + + + + + Care Team Providers + +------+ + | Care Spring Encaser Name | Role | Phone | + +------+ + | Thi Crodwer MD | PCP | | + +------+ [...] [place] | | | | | | [address] | | | | | | [phone] | | | +--------+ + + + [...] | | | | | | [place] [address] | | | | | | [phone] | | | | | | | | +--------+---------+ + + + as of this encounter Visit Diagnoses Not on filein this encounter
--- OUTSIDE RECORDS SUMMARY | ~2018-10-23 | XMS | Encounter Summary ---
Demographics + + + | Address | [address] | | | [place] [address] | + + + | Home Phone | | + + + | Preferred Language | Unknown | + + + | Marital Status | | + + + | Mandaeism Affiliation | 1009 | + + + | Race | Unknown | + + + | Ethnic Group | Unknown | + + + Author + + + | Author | [facility] | + + + | Organization | [facility] | + + + | Address | Unknown | + + + | Phone | Unavailable | + + + Support + + + + + | Name | Relationship | Address | Phone | + + + + + | Brent Marin | ECON | [place] | | | | | [address] | | + + + + + Care Team Providers + +------+ + | Care Property Claim Rep Name | Role | Phone | + [...] [place] | | | | | | [address] | | | | | | [phone] | | | +--------+ + + + [...] | | | | | | [place] [address] | | | | | | [phone] | | | | | | | | +--------+---------+ + + + as of this encounter Visit Diagnoses Not on filein this encounter
--- OUTSIDE RECORDS SUMMARY | ~2018-10-23 | XMS | Encounter Summary ---
Demographics + + + | Address | [address] | | | [place] [address] | + + + | Home Phone | | + + + | Preferred Language | Unknown | + + + | Marital Status | | + + + | Evangelical Affiliation | 1009 | + + + | Race | Unknown | + + + | Ethnic Group | Unknown | + + + Author + + + | Author | [facility] | + + + | Organization | [facility] | + + + | Address | Unknown | + + + | Phone | Unavailable | + + + Support + + + + + | Name | Relationship | Address | Phone | + + + + + | Brent Marin | ECON | [place] | | | | | [address] | | + + + + + Care Team Providers + +------+ + | Care Reconditioning Associate Name | Role | Phone | [...] | 2019 | on Only | Cardiology [place] | | | | | | [address] | | | | | | [place] | | | | | | [address] | | | | | | [phone] | | | +--------+ + + + [...] Suzanne Lazaro Primary electrophysiology provider: None 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
--- OUTSIDE RECORDS SUMMARY | ~2018-10-23 | XMS | Encounter Summary ---
Demographics + + + | Address | [address] | | | [place] [address] | + + + | Home Phone | | + + + | Preferred Language | Unknown | + + + | Marital Status | | + + + | Roman Catholic Affiliation | 1009 | + + + | Race | Unknown | + + + | Ethnic Group | Unknown | + + + Author + + + | Author | [facility] [employer] | + + + | Organization | [facility] | + + + | Address | Unknown | + + + | Phone | Unavailable | + + + Support + + + + + | Name | Relationship | Address | Phone | + + + + + | Brent Marin | ECON | [place] | | | | | [address] | | + + + + + Care Team Providers + +------+ + | Care Composite Technician Name | Role | Phone | + [...] [place] | | | | | | [address] | | | | | | [phone] | | | +--------+ + + + [...] | | | | | | [place] [address] | | | | | | [phone] | | | | | | | | +--------+---------+ + + + as of this encounter Visit Diagnoses Not on filein this encounter
--- OUTSIDE RECORDS SUMMARY | ~2018-10-23 | XMS | Encounter Summary ---
Demographics + + + | Address | [address] | | | [place] [address] | + + + | Home Phone | | + + + | Preferred Language | Unknown | + + + | Marital Status | | + + + | Advent Affiliation | 1009 | + + + | Race | Unknown | + + + | Ethnic Group | Unknown | + + + Author + + + | Author | [facility] [employer] | + + + | Organization | [facility] | + + + | Address | Unknown | + + + | Phone | Unavailable | + + + Support + + + + + | Name | Relationship | Address | Phone | + + + + + | Brent Marin | ECON | [place] | | | | | [address] | | + + + + + Care Team Providers + +------+ + | Care Mate Chief Name | Role | Phone | + [...] [place] | | | | | | [address] | | | | | | [phone] | | | +--------+ + + + [...] | | | | | | [place] [address] | | | | | | [phone] | | | | | | | | +--------+---------+ + + + as of this encounter Visit Diagnoses Not on filein this encounter
--- OUTSIDE RECORDS SUMMARY | ~2018-10-23 | XMS | Encounter Summary ---
Demographics + + + | Address | [address] | | | [place] [address] | + + + | Home Phone | | + + + | Preferred Language | Unknown | + + + | Marital Status | | + + + | Mandaen Affiliation | 1009 | + + + | Race | Unknown | + + + | Ethnic Group | Unknown | + + + Author + + + | Author | [facility] | + + + | Organization | [facility] | + + + | Address | Unknown | + + + | Phone | Unavailable | + + + Support + + + + + | Name | Relationship | Address | Phone | + + + + + | Brent Marin | ECON | [place] | | | | | [address] | | + + + + + Care Team Providers + +------+ + | Care Certified Pharmacy Tech Name | Role | Phone | + [...] [place] | | | | | | [address] | | | | | | [phone] | | | +--------+ + + + [...] | | | | | | [place] [address] | | | | | | [phone] | | | | | | | | +--------+---------+ + + + as of this encounter Visit Diagnoses Not on filein this encounter
--- OUTSIDE RECORDS SUMMARY | ~2018-10-23 | XMS | Encounter Summary ---
Demographics + + + | Address | [address] | | | [place] [address] | + + + | Home Phone | | + + + | Preferred Language | Unknown | + + + | Marital Status | | + + + | Uatsdin Affiliation | 1009 | + + + | Race | Unknown | + + + | Ethnic Group | Unknown | + + + Author + + + | Author | [facility]ointment Scheduler | + + + | Organization | [facility] | + + + | Address | Unknown | + + + | Phone | Unavailable | + + + Support + + + + + | Name | Relationship | Address | Phone | + + + + + | Brent Marin | ECON | [place] | | | | | [address] | | + + + + + Care Team Providers + +------+ + | Care Remedial Project Manager Name | Role | Phone | [...] [place] | | | | | | [address] | | | | | | [phone] | | | +--------+ + + + [...] | | | | | | [place] [address] | | | | | | [phone] | | | | | | | | +--------+---------+ + + + as of this encounter Visit Diagnoses Not on filein this encounter
--- OUTSIDE RECORDS SUMMARY | ~2018-10-23 | XMS | Clinical Summary ---
Demographics + + + | Address | [address] | | | [place] [address] | + + + | Home Phone | | + + + | Preferred Language | Unknown | + + + | Marital Status | | + + + | Orthodox Affiliation | 1009 | + + + | Race | Unknown | + + + | Ethnic Group | Unknown | + + + Author + + + | Author | [facility] [employer] | + + + | Organization | [facility] | + + + | Address | Unknown | + + + | Phone | Unavailable | + + + Support + + + + + | Name | Relationship | Address | Phone | + + + + + | Brent Marin | ECON | [place] | | | | | [address] | | + + + + + Care Team Providers + +------+ + | Care Sanding Machine Tender Automatic Name | Role | Phone | + [...] | | | | Activ | | 11050 UNITS TABS | 14 (fourteen) days. | [...] Pacemaker. | | Model-S/N: Damien THORNTON (SN [id number] | + + + + + | [...] months. Hx ICD/Pacemaker: implanted 02/15/2015, | | Vyteris DR-T/PRO MRI, SN: [id number].Last interrogation, | | 05/24/2016: battery status OK, [...] with | | adhesions/lysis, small bowel resection. [place] 10-year risk | | 1%, low risk.Lab, [...] | 2018 | | | MD | ([facility]) (Primary Dx); | | | | | [...] | | | | | | [place] [address] | | | | | | [phone] | | | | | | | [...] | N/A: | | | 10/08/ | [id number] | | 53Implanted: Qty: 1 on | | Chest | | | 2017 | | | 02/04/2015 by Sebas, | | | | | | /[id number] | | MD Queta | | | | | | 880 / | + +------+-------+ +--------+--------+--------+ | Atrial Lead Setrox S | | N/A: | | | 10/08/ | | | 53Implanted: Qty: 1 on | | Chest | | | 2016 | /[id number] | | 02/04/2015 by Sebas, | | | | | | 6630 / | | MD Queta | | | | | | | + +------+-------+ +--------+--------+--------+ | Pacemaker Damien CartagenaT | | N/A: | | | 04/10/ | [id number] | | PromriImplanted: Qty: 1 on | | Chest | | | 2014 | | | 02/04/2015 by Sebas, | | | | | | /[id number] | | MD Queta | | | | | | 752 / | + +------+-------+ +--------+--------+--------+ Results Not on filefrom Last 3 Months
--- OUTSIDE RECORDS SUMMARY | ~2018-10-23 | XMS | Encounter Summary ---
Demographics + + + | Address | [address] | | | [place] [address] | + + + | Home Phone | | + + + | Preferred Language | Unknown | + + + | Marital Status | | + + + | Zoroastrianism Affiliation | 1009 | + + + | Race | Unknown | + + + | Ethnic Group | Unknown | + + + Author + + + | Author | [facility] [employer] | + + + | Organization | [facility] | + + + | Address | Unknown | + + + | Phone | Unavailable | + + + Support + + + + + | Name | Relationship | Address | Phone | + + + + + | Brent Marin | ECON | [place] | | | | | [address] | | + + + + + Care Team Providers + +------+ + | Care Travel Director Name | Role | Phone | + [...] | Sick sinus | MD Suzanne | [facility] | | | | | syndrome | [address] | | | | | ([facility]) | Ck Renae | [address] | | | | | Precordial | Chao F | [place] | | | | | pain | [place] | [address] | | | | | Cardiac | [address] | Phone: | | | | | pacemaker in | Phone: | [phone] | | | | | situ | [phone] | Fax: | | | | | Procedures | Fax: | [phone] | | | | | [place] | [phone] | | | | | | Pharmaceutic [...] | 09/10/ | Orders Only | MARCELO [place] | Suzanne Lazaro, | Sick sinus syndrome | | 2019 | | Cardiology Radha | [address] | ([facility]) (Primary Dx); | | | | [address] | [address] [place], | Precordial pain; | | | | [place] | [place] [address] | Cardiac pacemaker in | | | | [address] | [phone] | situ | | | | [phone] | | | +--------+ + + + [...] [place], | | | | | | [place] [address] | | | | | | [phone] | | | | | | | [...]
--- OUTSIDE RECORDS SUMMARY | ~2018-10-23 | XMS | Encounter Summary ---
Demographics + + + | Address | [address] | | | [place] [address] | + + + | Home Phone | | + + + | Preferred Language | Unknown | + + + | Marital Status | | + + + | Tenriism Affiliation | 1009 | + + + | Race | Unknown | + + + | Ethnic Group | Unknown | + + + Author + + + | Author | [facility] [employer] | + + + | Organization | [facility] | + + + | Address | Unknown | + + + | Phone | Unavailable | + + + Support + + + + + | Name | Relationship | Address | Phone | + + + + + | Brent Marin | ECON | [place] | | | | | [address] | | + + + + + Care Team Providers + +------+ + | Care Mud Mill Tender Name | Role | Phone | + [...] | Sick sinus | MD Suzanne | [facility] | | | | | syndrome | [address] | | | | | ([facility]) | Ck Renae | [address] | | | | | Precordial | Chao F | [place] | | | | | pain | [place] | [address] | | | | | Cardiac | [address] | Phone: | | | | | pacemaker in | Phone: | [phone] | | | | | situ | [phone] | Fax: | | | | | Procedures | Fax: | [phone] | | | | | [place] | [phone] | | | | | | Pharmaceutic [...] | 09/10/ | Orders Only | MARCELO [place] | Suzanne Lazaro, | Sick sinus syndrome | | 2019 | | Cardiology Radha | [address] | ([facility]) (Primary Dx); | | | | [address] | [address] [place], | Precordial pain; | | | | [place] | [place] [address] | Cardiac pacemaker in | | | | [address] | [phone] | situ | | | | [phone] | | | +--------+ + + + [...] [place], | | | | | | [place] [address] | | | | | | [phone] | | | | | | | [...]
--- OUTSIDE RECORDS SUMMARY | ~2018-10-23 | XMS | Clinical Summary ---
Demographics + + + | Address | [address] | | | [place] [address] | + + + | Home Phone | | + + + | Preferred Language | Unknown | + + + | Marital Status | | + + + | Jain Affiliation | 1009 | + + + | Race | Unknown | + + + | Ethnic Group | Unknown | + + + Author + + + | Author | [facility] [employer] | + + + | Organization | [facility] | + + + | Address | Unknown | + + + | Phone | Unavailable | + + + Support + + + + + | Name | Relationship | Address | Phone | + + + + + | Brent Marin | ECON | [place] | | | | | [address] | | + + + + + Care Team Providers + +------+ + | Care Register Of Wills Name | Role | Phone | + [...] | | | | Activ | | 28474 UNITS TABS | 14 (fourteen) days. | [...] Pacemaker. | | Model-S/N: Damien THORNTON (SN [id number] | + + + + + | [...] months. Hx ICD/Pacemaker: implanted 02/15/2015, | | Solairedirect DR-T/PRO MRI, SN: [id number].Last interrogation, | | 05/24/2016: battery status OK, [...] with | | adhesions/lysis, small bowel resection. [place] 10-year risk | | 1%, low risk.Lab, [...] | 2018 | | | MD | ([facility]) (Primary Dx); | | | | | [...] | | | | | | [place] [address] | | | | | | [phone] | | | | | | | [...] | N/A: | | | 10/08/ | [id number] | | 53Implanted: Qty: 1 on | | Chest | | | 2017 | | | 02/04/2015 by Sebas, | | | | | | /[id number] | | MD Queta | | | | | | 880 / | + +------+-------+ +--------+--------+--------+ | Atrial Lead Setrox S | | N/A: | | | 10/08/ | | | 53Implanted: Qty: 1 on | | Chest | | | 2016 | /[id number] | | 02/04/2015 by Sebas, | | | | | | 6630 / | | MD Queta | | | | | | | + +------+-------+ +--------+--------+--------+ | Pacemaker Damien CartagenaT | | N/A: | | | 04/10/ | [id number] | | PromriImplanted: Qty: 1 on | | Chest | | | 2014 | | | 02/04/2015 by Sebas, | | | | | | /[id number] | | MD Queta | | | | | | 752 / | + +------+-------+ +--------+--------+--------+ Results Not on filefrom Last 3 Months
[~2018-10-23 12:25] MED LIST changes: +HYDROXYZINE HCL50 MG PO
--- OUTSIDE RECORDS SUMMARY | 2018-10-23 12:28 | XMS ---
PreManage Notification: QING CORBETT Security Cloak Room Attendant Events 1 event(s) in the past 18 months Most recent security events: Elopement at [facility] 10/05/2017 17:24 - Patient eloped before treatment completed. Details: LWBS CRITERIA MET - Group Notification - [facility] - Has Care Guidelines - [facility] - 2 Visits in 30 Days CARE PROVIDERS Les Crowder Internal Medicine: Pulmonary Disease 09/30/2018-Current PHONE: Unknown FEI JOSEPH Primary Care Current PHONE: [phone] Fawad has no Care Guidelines for this patient. Care History Medical/Surgical 01/08/2018 [facility] - Patient is currently established with [facility]. If patient is seen in the ED during business hours. Please contact CHWs at [facility]. Care Recommendation: This patient has had 5 or more Emergency Department visits in the last 12 months.\T\nbsp; Patient requires education on the scope and purpose of the ED as an acute care provider not a Primary Care Provider and should not be utilized for chronic conditions.\T\nbsp; These are guidelines and the provider should exercise clinical judgment when providing care. 10/29/2017 [facility] - Patient is currently established with [facility]. If patient is seen in the ED during business hours. Please contact CHWs at [facility] at [phone]. Care Recommendation: This patient has had 5 or more Emergency Department visits in the last 12 months. Patient requires education on the scope and purpose of the ED as an acute care provider not a Primary Care Provider and should not be utilized for chronic conditions. If patient returns to ED please contact Community Health WorkerJolie at [phone]. These are guidelines and the provider should exercise clinical judgment when providing care. E.D. VISIT COUNT (12 MO.) 4 [facility]. TOTAL 4 NOTE: Visits indicate total known visits. ED/UCC VISIT TRACKING (12 MO.) 10/23/2018 12:26 [facility] [place] TYPE: Emergency COMPLAINT: - LEFT ARM PAIN, LEFT ANKLE PAIN 09/27/2018 09:35 [facility] [place] TYPE: Emergency COMPLAINT: - PACEMAKER PROBLEM/SOB DIAGNOSES: - Allergy status to analgesic agent status - Other chest pain - Chronic obstructive pulmonary disease, unspecified - Hypothyroidism, unspecified - long term (current) use of aspirin - Presence of cardiac pacemaker - Allergy status to other antibiotic agents status - Acquired absence of other organs - Allergy status to other drugs, medicaments and biological substances status - Nicotine dependence, unspecified, uncomplicated - Hyperlipidemia, unspecified - Other tank terminal gauger (current) drug therapy - Allergy status to narcotic agent status - Acquired absence of both cervix and uterus 01/07/2018 19:38 [facility] [place] TYPE: Emergency COMPLAINT: - DIFFICUTLY BREATHING DIAGNOSES: - Nicotine dependence, unspecified, uncomplicated - Activity, walking, marching and hiking - Other care home (current) drug therapy - Hypothyroidism, unspecified - Pleurodynia - Contusion of abdominal wall, initial encounter - Allergy status to other drugs, medicaments and biological substances status - Other cause of strike by thrown, projected or falling object, initial encounter - Allergy status to narcotic agent status - prison (current) use of aspirin 10/23/2017 13:[address] [facility] [place] TYPE: Emergency COMPLAINT: - BODY PAIN/NO INJURY DIAGNOSES: - Allergy status to narcotic agent status - Sciatica, left side - Hypothyroidism, unspecified - long term (current) use of aspirin - Allergy status to other drugs, medicaments and biological substances status - Sciatica, left side - Fibromyalgia - Allergy status to other antibiotic agents status - Other tank terminal gauger (current) drug therapy - Nicotine dependence, unspecified, uncomplicated INPATIENT VISIT TRACKING (12 MO.) No inpatient visits to display in this time frame [email or web address]
[2018-10-23] MEDS ORDERED: NORCO 7.5-3251 EACH PO (13:26)
[2018-10-23] MEDS ORDERED: ONDANSETRON ODT8 MG PO (13:41)
== END 2018-10-23 14:04 | disposition home or self-care (01) ==
LOC: ED 12:25
DX: S52.572A Other intraarticular fracture of lower end of left radius, initial encounter for closed fracture (principal); S93.402A Sprain of unspecified ligament of left ankle, initial encounter; W01.198A Fall on same level from slipping, tripping and stumbling with subsequent striking against other object, initial encounter; E03.9 Hypothyroidism, unspecified; F17.200 Nicotine dependence, unspecified, uncomplicated; Z88.1 Allergy status to other antibiotic agents; Z88.8 Allergy status to other drugs, medicaments and biological substances; Z88.6 Allergy status to analgesic agent; Z79.52 Long term (current) use of systemic steroids; Z79.899 Other long term (current) drug therapy; Z79.82 Long term (current) use of aspirin
CPT/HCPCS: 29125; 73110; 73610; 99283-25; 99406

== ENCOUNTER 2018-10-27 09:48 | Emergency (ER) | payer SELFPAY ==
[~2018-10-27] VITALS: Ht 172.7 cm; Wt 55.3 kg
--- OUTSIDE RECORDS SUMMARY | ~2018-10-27 | XMS | Encounter Summary ---
Demographics + + + | Address | [address] | | | [place] [address] | + + + | Home Phone | | + + + | Preferred Language | Unknown | + + + | Marital Status | | + + + | Presybeterian Affiliation | 1009 | + + + | Race | Unknown | + + + | Ethnic Group | Unknown | + + + Author + + + | Author | [facility] [employer] | + + + | Organization | [facility] | + + + | Address | Unknown | + + + | Phone | Unavailable | + + + Support + + + + + | Name | Relationship | Address | Phone | + + + + + | Brent Marin | ECON | [place] | | | | | [address] | | + + + + + Care Team Providers + +------+ + | Care Pbx Installer Name | Role | Phone | + +------+ + | Thi Crowder MD | PCP | | + +------+ + Encounter Details +--------+ + + + + | Date | Type | Department | Care Team | Description | +--------+ + + + + | 09/27/ | Telephone | [facility]O [place] | Juan Lay | | | 2018 | | Cardiology Catherine | | | | | | [address] | | | | | | [place] | | | | | | [address] | | | | | | [phone] | | | +--------+ + + + [...] | | | | | | [place] [address] | | | | | | [phone] | | | | | | | | +--------+---------+ + + + as of this encounter Visit Diagnoses Not on filein this encounter
--- OUTSIDE RECORDS SUMMARY | ~2018-10-27 | XMS | Encounter Summary ---
Demographics + + + | Address | [address] | | | [place] [address] | + + + | Home Phone | | + + + | Preferred Language | Unknown | + + + | Marital Status | | + + + | Orthodox Affiliation | 1009 | + + + | Race | Unknown | + + + | Ethnic Group | Unknown | + + + Author + + + | Author | [facility] | + + + | Organization | [facility] [employer] | + + + | Address | Unknown | + + + | Phone | Unavailable | + + + Support + + + + + | Name | Relationship | Address | Phone | + + + + + | Brent Marin | ECON | [place] | | | | | [address] | | + + + + + Care Team Providers + +------+ + | Care Behavioral Specialist Name | Role | Phone | + [...] [place] | | | | | | [address] | | | | | | [phone] | | | +--------+ + + + [...] [place], | | | | | | [place] [address] | | | | | | [phone] | | | | | | | | +--------+---------+ + + + as of this encounter Visit Diagnoses Not on filein this encounter
--- OUTSIDE RECORDS SUMMARY | ~2018-10-27 | XMS | Clinical Summary ---
Demographics + + + | Address | [address] | | | [place] [address] | + + + | Home Phone | | + + + | Preferred Language | Unknown | + + + | Marital Status | | + + + | Jewish Affiliation | 1009 | + + + | Race | Unknown | + + + | Ethnic Group | Unknown | + + + Author + + + | Author | [facility] [employer] | + + + | Organization | [facility] | + + + | Address | Unknown | + + + | Phone | Unavailable | + + + Support + + + + + | Name | Relationship | Address | Phone | + + + + + | Brent Marin | ECON | [place] | | | | | [address] | | + + + + + Care Team Providers + +------+ + | Care Chemical Laboratory Tester Name | Role | Phone | + [...] | | | | Activ | | 09611 UNITS TABS | 14 (fourteen) days. | [...] Pacemaker. | | Model-S/N: Damien THORNTON (SN [id number] | + + + + + | Fatigue | 09/10/2015 | + + + | Chest pain | 01/29/2015 | + + + | Sick sinus syndrome (HCC) | 01/29/2015 | + + + + + | Last Assessment & Plan: SSS, pacemaker therapy. 56yo | | COOPER,has a history of sick sinus syndrome, symptomatic [...] months. Hx ICD/Pacemaker: implanted 02/15/2015, | | GMI DR-T/PRO MRI, SN: [id number].Last interrogation, | | 05/24/2016: battery status OK, [...] with | | adhesions/lysis, small bowel resection. [place] 10-year risk | | 1%, low risk.Lab, [...] + + | 10/09/ | Documentati | | Juan Lay | Pacemaker (Alert ) | | 2018 | on Only | | | | +--------+ + + + + | 10/02/ | Documentati | | Juan Lay | | 2018 | on Only | | | | +--------+ + + + + | 09/27/ | Telephone | | Juan Lay | | | 2018 | | | | | +--------+ + + + + | 09/19/ | Documentati | | | Pacemaker (Remote ) | | 2019 | on Only | | | | +--------+ + + + + | 09/10/ | Orders Only | | Suzanne Lazaro, | Sick sinus syndrome | | 2018 | | | MD | ([facility]) (Primary Dx); | | | | | | Precordial pain; | | | | | | Cardiac pacemaker in | | | | | | situ | +--------+ + + + + | 08/19/ | Telephone | | Juan Lay | | | 2019 | | | | | +--------+ + [...] | | | | | | [place] [address] | | | | | | [phone] | | | | | | | [...] | N/A: | | | 10/08/ | [id number] | | 53Implanted: Qty: 1 on | | Chest | | | 2017 | | | 02/04/2015 by Sebas, | | | | | | /[id number] | | MD Queta | | | | | | 880 / | + +------+-------+ +--------+--------+--------+ | Atrial Lead Setrox S | | N/A: | | | 10/08/ | | | 53Implanted: Qty: 1 on | | Chest | | | 2016 | /[id number] | | 02/04/2015 by Sebas, | | | | | | 6630 / | | MD Queta | | | | | | | + +------+-------+ +--------+--------+--------+ | Pacemaker Damien CartagenaT | | N/A: | | | 04/10/ | [id number] | | PromriImplanted: Qty: 1 on | | Chest | | | 2014 | | | 02/04/2015 by Sebas, | | | | | | /[id number] | | MD Queta | | | | | | 752 / | + +------+-------+ +--------+--------+--------+ Results Not on filefrom Last 3 Months
--- OUTSIDE RECORDS SUMMARY | ~2018-10-27 | XMS | Encounter Summary ---
Demographics + + + | Address | [address] | | | [place] [address] | + + + | Home Phone | | + + + | Preferred Language | Unknown | + + + | Marital Status | | + + + | Baptism Affiliation | 1009 | + + + | Race | Unknown | + + + | Ethnic Group | Unknown | + + + Author + + + | Author | [facility] | + + + | Organization | [facility] | + + + | Address | Unknown | + + + | Phone | Unavailable | + + + Support + + + + + | Name | Relationship | Address | Phone | + + + + + | Brent Marin | ECON | [place] | | | | | [address] | | + + + + + Care Team Providers + +------+ + | Care Crew Boat Operator Name | Role | Phone | + +------+ + | Thi Crowder MD | PCP | | + +------+ + Encounter Details +--------+ + + + + | Date | Type | Department | Care Team | Description | +--------+ + + + + | 10/02/ | Documentati | [facility] | Juan Lay | | | 2018 | on Only | Eduarda Alexander | | | | | | [address] | | | | | | [place] | | | | | | [address] | | | | | | [phone] | | | +--------+ + + + [...] this encounter Progress Notes Juan Lay - 10/02/2018 7:57 AM PDTALERT REPORT Pt had report for [facility] on 10/02/18 at 02:00 lasting 8 seconds. Will continue to monitor in this encounter [...] | | | | | | [place] [address] | | | | | | [phone] | | | | | | | | +--------+---------+ + + + as of this encounter Visit Diagnoses Not on filein this encounter
--- OUTSIDE RECORDS SUMMARY | ~2018-10-27 | XMS | Encounter Summary ---
Demographics + + + | Address | [address] | | | [place] [address] | + + + | Home Phone | | + + + | Preferred Language | Unknown | + + + | Marital Status | | + + + | Mormonism Affiliation | 1009 | + + + | Race | Unknown | + + + | Ethnic Group | Unknown | + + + Author + + + | Author | [facility] | + + + | Organization | [facility] [employer] [facility] [employer] | + + + | Address | Unknown | + + + | Phone | Unavailable | + + + Support + + + + + | Name | Relationship | Address | Phone | + + + + + | Brent Marin | ECON | [place] | | | | | [address] | | + + + + + Care Team Providers + +------+ + | Care Steel Pourer Name | Role | Phone | + +------+ + | Thi Crowder MD | PCP | | + +------+ + Reason for Referral Nuclear Medicine (Routine) + +--------+ + + + + | Status | Reason | Specialty | Diagnoses / | Referred By | Referred To | | | | | Procedures | Contact | Contact | + +--------+ + + + + | Authorized | | | Diagnoses | Janiya Lazaro | | | | | Sick sinus | MD Suzanne | [facility] | | | | | syndrome | [address] | | | | | ([facility]) | Ck Renae | [address] | | | | | Precordial | Chao F | [place] | | | | | pain | [place] | [address] | | | | | Cardiac | [address] | Phone: | | | | | pacemaker in | Phone: | [phone] | | | | | situ | [phone] | Fax: | | | | | Procedures | Fax: | [phone] | | | | | [place] | [phone] | | | | | | Pharmaceutic | | | | | | | al (stress | | | | | | | and rest) | | | + +--------+ + + + + Encounter Details +--------+ + + + + | Date | Type | Department | Care Team | Description | +--------+ + + + + | 09/10/ | Orders Only | [facility] | Suzanne Lazaro, | Sick sinus syndrome | | 2019 | | Cardiology Radha | [address] | ([facility]) (Primary Dx); | | | | [address] | [address] [place], | Precordial pain; | | | | [place] | [place] [address] | Cardiac pacemaker in | | | | [address] | [phone] | situ | | | | [phone] | | | +--------+ + + + [...] [place], | | | | | | [place] [address] | | | | | | [phone] | | | | | | | | +--------+---------+ + + + + +--------+ + + | Name | Priori | Associated Diagnoses | Order Schedule | | | ty | | | + +--------+ + + | NM Pharmaceutical (stress and | Routin | Sick sinus | Expected: | | rest) | e | syndrome (HCC) | 09/10/2018, Expires: | | | | Precordial pain | 03/12/2019 | | | | Cardiac pacemaker in | | | | | situ | | + +--------+ + + as of this encounter Visit Diagnoses + + | Diagnosis | + + | Sick sinus syndrome (HCC) - Primary | + + | Sinoatrial node dysfunction | + + | Precordial pain | + + | Cardiac pacemaker in situ | + +
--- OUTSIDE RECORDS SUMMARY | ~2018-10-27 | XMS | Encounter Summary ---
Demographics + + + | Address | [address] | | | [place] [address] | + + + | Home Phone | | + + + | Preferred Language | Unknown | + + + | Marital Status | | + + + | Samaritan Affiliation | 1009 | + + + | Race | Unknown | + + + | Ethnic Group | Unknown | + + + Author + + + | Author | [facility] | + + + | Organization | [facility] | + + + | Address | Unknown | + + + | Phone | Unavailable | + + + Support + + + + + | Name | Relationship | Address | Phone | + + + + + | Brent Marin | ECON | [place] | | | | | [address] | | + + + + + Care Team Providers + +------+ + | Care Professor Of Exercise Science Name | Role | Phone | + [...] | 2019 | on Only | Cardiology [place] | | | | | | [address] | | | | | | [place] | | | | | | [address] | | | | | | [phone] | | | +--------+ + + + [...] Suzanne Lazaro Primary electrophysiology provider: None Device claim representative: [employer] Device type: Dual chamber Battery Longevity: ok [...] [place], | | | | | | [place] [address] | | | | | | [phone] | | | | | | | [...]
--- OUTSIDE RECORDS SUMMARY | ~2018-10-27 | XMS | Encounter Summary ---
Demographics + + + | Address | [address] | | | [place] [address] | + + + | Home Phone | | + + + | Preferred Language | Unknown | + + + | Marital Status | | + + + | Church Affiliation | 1009 | + + + | Race | Unknown | + + + | Ethnic Group | Unknown | + + + Author + + + | Author | [facility] [employer] | + + + | Organization | [facility] | + + + | Address | Unknown | + + + | Phone | Unavailable | + + + Support + + + + + | Name | Relationship | Address | Phone | + + + + + | Brent Marin | ECON | [place] | | | | | [address] | | + + + + + Care Team Providers + +------+ + | Care Rail Car Loader Name | Role | Phone | + [...] [place] | | | | | | [address] | | | | | | [phone] | | | +--------+ + + + [...] | | | | | | [place] [address] | | | | | | [phone] | | | | | | | | +--------+---------+ + + + as of this encounter Visit Diagnoses Not on filein this encounter
--- OUTSIDE RECORDS SUMMARY | ~2018-10-27 | XMS | Encounter Summary ---
Demographics + + + | Address | [address] | | | [place] [address] | + + + | Home Phone | | + + + | Preferred Language | Unknown | + + + | Marital Status | | + + + | Anglican Affiliation | 1009 | + + + | Race | Unknown | + + + | Ethnic Group | Unknown | + + + Author + + + | Author | [email or web address] | + + + | Organization | [facility] | + + + | Address | Unknown | + + + | Phone | Unavailable | + + + Support + + + + + | Name | Relationship | Address | Phone | + + + + + | Brent Marin | ECON | [place] | | | | | [address] | | + + + + + Care Team Providers + +------+ + | Care Curing Finisher Name | Role | Phone | + [...] [place] | | | | | | [address] | | | | | | [phone] | | | +--------+ + + + [...] | | | | | | [place] [address] | | | | | | [phone] | | | | | | | | +--------+---------+ + + + as of this encounter Visit Diagnoses Not on filein this encounter
--- OUTSIDE RECORDS SUMMARY | ~2018-10-27 | XMS | Encounter Summary ---
Demographics + + + | Address | [address] | | | [place] [address] | + + + | Home Phone | | + + + | Preferred Language | Unknown | + + + | Marital Status | | + + + | Hinduism Affiliation | 1009 | + + + | Race | Unknown | + + + | Ethnic Group | Unknown | + + + Author + + + | Author | [facility] | + + + | Organization | [facility] | + + + | Address | Unknown | + + + | Phone | Unavailable | + + + Support + + + + + | Name | Relationship | Address | Phone | + + + + + | Brent Marin | ECON | [place] | | | | | [address] | | + + + + + Care Team Providers + +------+ + | Care Aircraft Sales Representative Name | Role | Phone | + [...] [place] | | | | | | [address] | | | | | | [phone] | | | +--------+ + + + [...] | | | | | | [place] [address] | | | | | | [phone] | | | | | | | | +--------+---------+ + + + as of this encounter Visit Diagnoses Not on filein this encounter
--- OUTSIDE RECORDS SUMMARY | ~2018-10-27 | XMS | Encounter Summary ---
Demographics + + + | Address | [address] | | | [place] [address] | + + + | Home Phone | | + + + | Preferred Language | Unknown | + + + | Marital Status | | + + + | Worship Affiliation | 1009 | + + + | Race | Unknown | + + + | Ethnic Group | Unknown | + + + Author + + + | Author | [facility] | + + + | Organization | [facility] | + + + | Address | Unknown | + + + | Phone | Unavailable | + + + Support + + + + + | Name | Relationship | Address | Phone | + + + + + | Brent Marin | ECON | [place] | | | | | [address] | | + + + + + Care Team Providers + +------+ + | Care Pigment Processor Name | Role | Phone | [...] [place] | | | | | | [address] | | | | | | [phone] | | | +--------+ + + + [...] | | | | | | [place] [address] | | | | | | [phone] | | | | | | | | +--------+---------+ + + + as of this encounter Visit Diagnoses Not on filein this encounter
--- OUTSIDE RECORDS SUMMARY | ~2018-10-27 | XMS | Encounter Summary ---
Demographics + + + | Address | [address] | | | [place] [address] | + + + | Home Phone | | + + + | Preferred Language | Unknown | + + + | Marital Status | | + + + | Cheondoism Affiliation | 1009 | + + + | Race | Unknown | + + + | Ethnic Group | Unknown | + + + Author + + + | Author | [facility] [employer] | + + + | Organization | [facility] | + + + | Address | Unknown | + + + | Phone | Unavailable | + + + Support + + + + + | Name | Relationship | Address | Phone | + + + + + | Brent Marin | ECON | [place] | | | | | [address] | | + + + + + Care Team Providers + +------+ + | Care Glass Wool Blanket Machine Feeder Name | Role | Phone | + [...] [place] | | | | | | [address] | | | | | | [phone] | | | +--------+ + + + [...] | | | | | | [place] [address] | | | | | | [phone] | | | | | | | | +--------+---------+ + + + as of this encounter Visit Diagnoses Not on filein this encounter
--- OUTSIDE RECORDS SUMMARY | ~2018-10-27 | XMS | Encounter Summary ---
Demographics + + + | Address | [address] | | | [place] [address] | + + + | Home Phone | | + + + | Preferred Language | Unknown | + + + | Marital Status | | + + + | Baptism Affiliation | 1009 | + + + | Race | Unknown | + + + | Ethnic Group | Unknown | + + + Author + + + | Author | [facility] | + + + | Organization | [facility] | + + + | Address | Unknown | + + + | Phone | Unavailable | + + + Support + + + + + | Name | Relationship | Address | Phone | + + + + + | Brent Marin | ECON | [place] | | | | | [address] | | + + + + + Care Team Providers + +------+ + | Care Ceramic Artist Name | Role | Phone | + [...] | 2019 | on Only | Cardiology [place] | | | | | | [address] | | | | | | [place] | | | | | | [address] | | | | | | [phone] | | | +--------+ + + + [...] Suzanne Lazaro Primary electrophysiology provider: None 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
--- OUTSIDE RECORDS SUMMARY | ~2018-10-27 | XMS | Encounter Summary ---
Demographics + + + | Address | [address] | | | [place] [address] | + + + | Home Phone | | + + + | Preferred Language | Unknown | + + + | Marital Status | | + + + | Sabianist Affiliation | 1009 | + + + | Race | Unknown | + + + | Ethnic Group | Unknown | + + + Author + + + | Author | [facility] [employer] [facility] | + + + | Organization | [facility] | + + + | Address | Unknown | + + + | Phone | Unavailable | + + + Support + + + + + | Name | Relationship | Address | Phone | + + + + + | Brent Marin | ECON | [place] | | | | | [address] | | + + + + + Care Team Providers + +------+ + | Care Pit Operator Name | Role | Phone | [...] | Sick sinus | MD Suzanne | [facility] | | | | | syndrome | [address] | | | | | ([facility]) | Ck Renae | EDY WILHELM | | | | | Precordial | Chao F | [place] | | | | | pain | [place] | [address] | | | | | Cardiac | [address] | Phone: | | | | | pacemaker in | Phone: | [phone] | | | | | situ | [phone] | Fax: | | | | | Procedures | Fax: | [phone] | | | | | [place] | [phone] | | | | | | Pharmaceutic [...] | 09/10/ | Orders Only | [facility] [place] | Suzanne Lazaro, | Sick sinus syndrome | | 2019 | | Cardiology [place] | [address] | ([facility]) (Primary Dx); | | | | [address] | [address] [place], | Precordial pain; | | | | [place] | [place] [address] | Cardiac pacemaker in | | | | [address] | [phone] | situ | | | | [phone] | | | +--------+ + + + [...] [place], | | | | | | [place] [address] | | | | | | [phone] | | | | | | | [...]
--- OUTSIDE RECORDS SUMMARY | ~2018-10-27 | XMS | Clinical Summary ---
Demographics + + + | Address | [address] | | | [place] [address] | + + + | Home Phone | | + + + | Preferred Language | Unknown | + + + | Marital Status | | + + + | Latter-Day Affiliation | 1009 | + + + | Race | Unknown | + + + | Ethnic Group | Unknown | + + + Author + + + | Author | [facility] | + + + | Organization | [facility] | + + + | Address | Unknown | + + + | Phone | Unavailable | + + + Support + + + + + | Name | Relationship | Address | Phone | + + + + + | Brent Marin | ECON | [place] | | | | | [address] | | + + + + + Care Team Providers + +------+ + | Care Hospital Chief Financial Officer Name | Role | Phone | + [...] | | | | Activ | | [address] UNITS TABS | 14 (fourteen) days. | [...] Pacemaker. | | Model-S/N: Damien THORNTON (SN [id number] | + + + + + | [...] months. Hx ICD/Pacemaker: implanted 02/15/2015, | | Catapult DR-T/PRO MRI, SN: [id number].Last interrogation, | | 05/24/2016: battery status OK, [...] with | | adhesions/lysis, small bowel resection. Craig 10-year risk | | 1%, low risk.Lab, [...] | 2018 | | | MD | ([facility]) (Primary Dx); | | | | | [...] | | | | | | [place] [address] | | | | | | [phone] | | | | | | | [...] | N/A: | | | 10/08/ | [id number] | | 53Implanted: Qty: 1 on | | Chest | | | 2017 | | | 02/04/2015 by Sebas, | | | | | | /[id number] | | MD Queta | | | | | | 880 / | + +------+-------+ +--------+--------+--------+ | Atrial Lead Setrox S | | N/A: | | | 10/08/ | | | 53Implanted: Qty: 1 on | | Chest | | | 2016 | /[id number] | | 02/04/2015 by Sebas, | | | | | | 6630 / | | MD Queta | | | | | | | + +------+-------+ +--------+--------+--------+ | Pacemaker Damien CartagenaT | | N/A: | | | 04/10/ | [id number] | | PromriImplanted: Qty: 1 on | | Chest | | | 2014 | | | 02/04/2015 by Sebas, | | | | | | /[id number] | | MD Queta | | | | | | 752 / | + +------+-------+ +--------+--------+--------+ Results Not on filefrom Last 3 Months
[~2018-10-27 09:48] MED LIST changes: +NORCO 7.5-3251 EACH PO; +ONDANSETRON ODT8 MG PO
--- OUTSIDE RECORDS SUMMARY | 2018-10-27 09:50 | XMS ---
PreManage Notification: QING CORBETT Security Radiation / Chemistry Technician Events 1 event(s) in the past 18 months Most recent security events: Elopement at [facility] 10/05/2017 17:24 - Patient eloped before treatment completed. Details: LWBS CRITERIA MET - Group Notification - [facility] - Has Care Guidelines - [facility] - 2 Visits in 30 Days CARE PROVIDERS Les Crowder Internal Medicine: Pulmonary Disease 09/30/2018-Current PHONE: Unknown FEI JOSEPH Primary Care Current PHONE: [phone] Fawad has no Care Guidelines for this patient. Care History Medical/Surgical 01/08/2018 [facility] - Patient is currently established with [facility]. If patient is seen in the ED during business hours. Please contact CHWs at [facility]. Care Recommendation: This patient has had 5 or more Emergency Department visits in the last 12 months.\T\nbsp; Patient requires education on the scope and purpose of the ED as an acute care provider not a Primary Care Provider and should not be utilized for chronic conditions.\T\nbsp; These are guidelines and the provider should exercise clinical judgment when providing care. 10/29/2017 [facility] - Patient is currently established with [facility]. If patient is seen in the ED during business hours. Please contact CHWs at [facility] at [phone]. Care Recommendation: This patient has had 5 or more Emergency Department visits in the last 12 months. Patient requires education on the scope and purpose of the ED as an acute care provider not a Primary Care Provider and should not be utilized for chronic conditions. If patient returns to ED please contact Community Health WorkerJolie at [phone]. These are guidelines and the provider should exercise clinical judgment when providing care. E.D. VISIT COUNT (12 MO.) 4 [facility]. TOTAL 4 NOTE: Visits indicate total known visits. ED/UCC VISIT TRACKING (12 MO.) 10/27/2018 09:49 [facility] [place] TYPE: Emergency COMPLAINT: - L ARM SWELLING 10/23/2018 12:26 [facility] [place] TYPE: Emergency COMPLAINT: - LEFT ARM PAIN, LEFT ANKLE PAIN DIAGNOSES: - Nicotine dependence, unspecified, uncomplicated - group home (current) use of aspirin - Fall on same level from slipping, tripping and stumbling with subsequent striking against other object, initial encounter - Allergy status to analgesic agent status - Other intraarticular fracture of lower end of left radius, initial encounter for closed fracture - Other retirement (current) drug therapy - Allergy status to other drugs, medicaments and biological substances status - Pain in left wrist - group home (current) use of systemic steroids - Allergy status to other antibiotic agents status - Hypothyroidism, unspecified - Sprain of unspecified ligament of left ankle, initial encounter 09/27/2018 09:35 [facility] [place] TYPE: Emergency COMPLAINT: - PACEMAKER PROBLEM/SOB DIAGNOSES: - Allergy status to analgesic agent status - Other chest pain - Chronic obstructive pulmonary disease, unspecified - Hypothyroidism, unspecified - buttermaker helper (current) use of aspirin - Presence of cardiac pacemaker - Allergy status to other antibiotic agents status - Acquired absence of other organs - Allergy status to other drugs, medicaments and biological substances status - Nicotine dependence, unspecified, uncomplicated - Hyperlipidemia, unspecified - Other exterminator termite (current) drug therapy - Allergy status to narcotic agent status - Acquired absence of both cervix and uterus 01/07/2018 19:[address] [facility] [place] TYPE: Emergency COMPLAINT: - DIFFICUTLY BREATHING DIAGNOSES: - Nicotine dependence, unspecified, uncomplicated - Activity, walking, marching and hiking - Other retirement (current) drug therapy - Hypothyroidism, unspecified - Pleurodynia - Contusion of abdominal wall, initial encounter - Allergy status to other drugs, medicaments and biological substances status - Other cause of strike by thrown, projected or falling object, initial encounter - Allergy status to narcotic agent status - buttermaker helper (current) use of aspirin INPATIENT VISIT TRACKING (12 MO.) No inpatient visits to display in this time frame [email or web address]
[2018-10-27] MEDS ORDERED: ONDANSETRON ODT4 MG PO (10:46)
== END 2018-10-27 11:07 | disposition home or self-care (01) ==
LOC: ED 09:48
DX: M25.531 Pain in right wrist (principal); S52.612D Displaced fracture of left ulna styloid process, subsequent encounter for closed fracture with routine healing; S52.502D Unspecified fracture of the lower end of left radius, subsequent encounter for closed fracture with routine healing; E03.9 Hypothyroidism, unspecified; J44.9 Chronic obstructive pulmonary disease, unspecified; E78.5 Hyperlipidemia, unspecified; F17.200 Nicotine dependence, unspecified, uncomplicated; Z95.0 Presence of cardiac pacemaker; Z90.49 Acquired absence of other specified parts of digestive tract; Z90.710 Acquired absence of both cervix and uterus; Z88.1 Allergy status to other antibiotic agents; Z88.6 Allergy status to analgesic agent; Z88.5 Allergy status to narcotic agent; Z88.8 Allergy status to other drugs, medicaments and biological substances; Z79.82 Long term (current) use of aspirin; Z79.899 Other long term (current) drug therapy
CPT/HCPCS: 73090; 99283